=== PATIENT | male | born 1955 | race Caucasian/White ===

== ENCOUNTER → 2016-06-04 | Outpatient (CLI) | payer OTHER ==
--- NOTE | 2016-06-04 12:25 | CT ---
EXAMINATION TYPE: CT angio abdomen DATE OF EXAM: 06/04/2016 12:17 PM COMPARISON: NONE HISTORY: AAA follow up CT DLP: 997.4 mGycm Automated exposure control for dose reduction was used. TECHNIQUE: Performed without and with IV Contrast, patient injected with 100 mL of Omnipaque 350. Three-D reconstructed images are performed.. FINDINGS: There is an abdominal aortic aneurysm measuring 5.2 cm in greatest AP dimension. This begins in the i nfrarenal region and terminates at the bifurcation. Vascular calcification is within the aorta. Note is made of sigmoid diverticulosis. No acute diverticulitis is evident. Multiple hypodensities ar e scattered within the liver likely related to hepatic cysts. Spleen is unremarkable. Pancreas normal . Gallbladder is normal. Kidneys are unremarkable. Adrenal glands are normal. Urinary bladder is decompressed with limited evaluation Limited CT sections are obtained the lung bases. There is streak opacity at the right lung base may b e some atelectasis. Underlying nodularity measuring 1.0 cm may be present. Underlying mass should be considered. Follow-up CT chest is recommended. This was present for 12/10/2015. The internal flow lumen of the abdominal aortic aneurysm is smaller than the aortic diameter. No extr avasation of contrast is evident. 3-D reconstructed images performed separately on the [place] by the technologist are filmed and presented for interpretation. IMPRESSION: 1. ABDOMINAL AORTIC ANEURYSM MEASURING 5.2 CM IN GREATEST AP DIMENSION. THIS IS 0.4 CM LARGER THAN TH E COMPARISON OF MAY 2015.
== END | disposition home or self-care (01) ==
LOC: RADCTMAIN 11:23
PROVIDERS: ATTEND Internal Medicine Interventional Cardiology
DX: I71.4 Abdominal aortic aneurysm, without rupture (principal)
CPT/HCPCS: 74175; Q9967

== ENCOUNTER → 2016-12-07 | Outpatient (CLI) | payer OTHER ==
--- NOTE | 2016-12-07 10:44 | CT ---
EXAMINATION TYPE: CT angio neck DATE OF EXAM: 12/07/2016 HISTORY: Carotid stenosis COMPARISON: NONE CT DLP: 776 mGycm. Automated Exposure Control for Dose Reduction was Utilized. TECHNIQUE: CTA scan of the neck is performed with IV Contrast, patient injected with 65 mL of Omnipa que 350, axial images are obtained, coronal and sagittal reformatted images are reviewed. Three-D rec onstructed images are created on an independent workstation and reviewed. FINDINGS: Carotid: Left: Calcific and noncalcific atheromatous plaquing is present at the carotid bulb on the left resul ting in 60% stenosis at the carotid bulb 4 6 mm with focal near occlusive stenosis of approximately 9 0% seen on series 7 image 11 and series 10 image 41. Distal to this there is approximately 60% stenos is for 6 mm secondary to calcific atheromatous plaquing seen on series 5 image 40 and 39. The remaind er of the extracranial portions of the internal carotid artery are unremarkable. Nonhemodynamically s ignificant calcific atheromatous changes are seen of the left cavernous and supraclinoid portions of the internal carotid artery. Right: Calcific atheromatous plaquing is seen of the common carotid artery on the right, less than 50 % and nonhemodynamically significant. At the carotid bulb calcific and noncalcific atheromatous segovia es are also appreciated resulting in approximately 40% stenosis, also nonhemodynamically significant. Within the internal carotid artery just distal to the carotid bulb there is a focal area of stenosis that is approximately 70% for approximately 6-9 mm in length. The remainder of the extracranial port ions of the right internal carotid artery are unremarkable. Nonhemodynamically significant calcific a theromatous changes are seen of the right cavernous and supraclinoid portions of the internal carotid artery Other vascular structures: The right vertebral artery is dominant. Ostial stenosis at the origin of t he left vertebral artery is seen although difficult to actually measure degree of stenosis given the obliquity of its takeoff. This is estimated on series 7 image 30 to be less than 50%. Atherosclerosis is also seen of the aortic arch with nonhemodynamically significant ostial calcific atheromatous rodo nges of the great vessel origins. Approximately 50% stenosis is seen of the proximal subclavian arter y on the left due to calcific and noncalcific atheromatous plaquing. 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 Paranasal sinu ses are well aerated as are the mastoid air cells. Multilevel degenerative changes are appreciated of the cervical spine resulting in variable degrees of neural foraminal stenosis. Thyroid appears unrem arkable. No adenopathy is seen within the superior mediastinum. Partial visualization of median cantrell otomy wires and mediastinal clips from presumed prior coronary artery bypass are present. IMPRESSION: 1. Short segment focal near complete occlusion (approximately 90% degree of stenosis) of the left int ernal carotid artery just distal to the left carotid bulb with subsequent short segment stenosis of a pproximately 60% of the internal carotid artery for approximately 6 mm in length. 2. Focal stenosis of the right internal carotid artery just distal to the carotid bulb measuring 70% for approximately 6 to 9 mm in length. 3. Multifocal moderate calcific and noncalcific atheromatous changes of the common carotid arteries, extracranial portions of the internal carotid arteries, and cavernous/supraclinoid portions of the in ternal carotid arteries of less than 50%, nonhemodynamically significant stenosis. 4. Multilevel degenerative disc disease of the cervical spine resulting in variable degrees of neural foraminal narrowing.
== END | disposition home or self-care (01) ==
LOC: RADCTMAIN 09:19
PROVIDERS: ATTEND Surgery Vascular Surgery
DX: I65.23 Occlusion and stenosis of bilateral carotid arteries (principal)
CPT/HCPCS: 70498; Q9967

== ENCOUNTER 2017-02-11 18:21 | Emergency (ER) | payer OTHER ==
[2017-02-11 18:41] VITALS: TEMP 99.2
[2017-02-11] MEDS ORDERED: SODIUM CHLORIDE 0.9% 1,000 ML IV STA (19:18)
[2017-02-11 19:31] LABS: Anisocytosis Slight; Basophils # (A) 0.1 k/uL (0-0.2); Basophils % (A) 0 %; CH 30.2; CHCM 32.9; Eosinophils # (A) 0.1 k/uL (0-0.7); Eosinophils % (A) 1 %; HCT 44.3 % (39.0-53.0); HDW 2.23; HGB 14.3 gm/dL (13.0-17.5); Luc # (Auto) 0.23; Luc % (Auto) 2; Lymphocytes # (A) 1.8 k/uL (1.0-4.8); Lymphocytes % (A) 15 %; MCH 29.8 pg (25.0-35.0); MCHC 32.3 g/dL (31.0-37.0); MCV 92.2 fL (80.0-100.0); Mean Platelet Volume 7.4; Monocytes # (A) 1.1 k/uL (0-1.0); Monocytes % (A) 9 %; Neutrophils # (A) 8.5 k/uL (1.3-7.7); Neutrophils % (A) 72 %; RDW 16.9 % (11.5-15.5); WBC 11.8 k/uL (3.8-10.6); WBC (Perox) 11.88
[2017-02-11] MEDS ORDERED: GELATIN SPONGE,ABSORB (LARGE) 1 EACH SPONGE TOPICAL STA (19:34)
[2017-02-11 19:41] LABS: ALT 39 U/L (21-72); AST 29 U/L (17-59); Alkaline Phosphatase 82 U/L (38-126); Anion Gap 12 mmol/L; Blood Urea Nitrogen 18 mg/dL (9-20); Calcium 9.5 mg/dL (8.4-10.2); Carbon Dioxide 21 mmol/L (22-30); Chloride 103 mmol/L (98-107); Glucose 100 mg/dL (74-99); INR 1.1 (<1.2); Magnesium 1.7 mg/dL (1.6-2.3); Non-African American GFR(MDRD) 55 (>60 ml/min/1.73 sqM); Partial Thromboplastin Time 27.2 sec (22.0-30.0); Potassium 4.3 mmol/L (3.5-5.1); Prothrombin Time 10.9 sec (9.0-12.0); Sodium 136 mmol/L (137-145); Total Bilirubin 0.7 mg/dL (0.2-1.3); Total Protein 7.5 g/dL (6.3-8.2)
[2017-02-11] MEDS ORDERED: LIDOCAINE/EPINEPHR/TETRACAINE 5 ML BOTTLE TOPICAL ONE (19:43)
--- NOTE | 2017-02-11 19:46 | ED ---
GI Bleed HPI - General Chief complaint: GI Bleed Stated complaint: Blood in stool Time Seen by Provider: 02/11/17 19:04 Source: patient, RN notes reviewed, old records reviewed Mode of arrival: ambulatory Limitations: no limitations - History of Present Illness Initial comments: This is a 62-year-old male presents emergency department today chief complaint of bleeding from his rectum for approximately one day. He reports he was at work, and went to have a bowel movement and noticed severe bleeding and passed a clot. Patient reports he's had a history of hemorrhage in the step on it periodically. He is on Plavix after a AAA repair, in July, he also had a carotid endarterectomy done approximately one week ago by Dr. Dumont. Patient reports he has no chest pain or shortness of breath. Denies any palpitations. Patient reports that he is went through multiple dish towels within his underwear due to the bleeding from the hemorrhoid. Patient states that he does not feel dizzy or lightheaded. He started apply pressure and shower over the area but he continues to bleed. - Related Data Home Medications Medication Instructions Recorded Confirmed Aspirin 81 mg PO BID 03/26/14 02/11/17 Lisinopril 2.5 mg PO DAILY 03/26/14 02/11/17 Metoprolol Tartrate [Lopressor] 25 mg PO BID 03/26/14 02/11/17 Cholecalciferol [Vitamin D3] 5,000 unit PO DAILY 02/11/17 02/11/17 Clopidogrel Bisulfate [Plavix] 75 mg PO DAILY 02/11/17 02/11/17 Previous Rx's Medication Instructions Recorded Polyethylene Glycol 3350 [Miralax] 17 gm PO DAILY #255 gm 02/11/17 Allergies Allergy/AdvReac Type Severity Reaction Status Date / Time No Known Allergies Allergy Verified 02/11/17 19:02 Review of Systems ROS Statement: Those systems with pertinent positive or pertinent negative responses have been documented in the HPI. ROS Other: All systems not noted in ROS Statement are negative. Past Medical History Past Medical History: Hyperlipidemia, Hypertension Additional Past Medical History / Comment(s): 03/26/14 Pt presents to [facility] ER via EMS with c/o having snowblowed his driveway for 1/2 hour and then went into the house. He started feeling lightheaded and almost passed out. He had associated nausea and was pale and sob per . Symptoms lasted about 5 minutes. Pt also states he thinks he may have a L ear infection at this time. He has some discomfort in L ear.Other HX: Pt denies HTN - states he is on lopressor and zestril due to having had CABG only and was never HTN. History of Any Multi-Drug Resistant Organisms: None Reported Past Surgical History: Coronary Bypass/CABG, Hernia Repair, Orthopedic Surgery, Tonsillectomy Additional Past Surgical History / Comment(s): May 2012 5 vessel CABG, R and L inguinal hernia repairs, bilateral shoulder surgery- R side was operated on by mistake and L side had torn ligaments and cartlidge repair. AAA repair July 2017, carotid Past Anesthesia/Blood Transfusion Reactions: No Reported Reaction Additional Past Anesthesia/Blood Transfusion Reaction / Comment(s): Pt has never recieved blood to his knowledge Past Psychological History: No Psychological Hx Reported Smoking Status: Former smoker Past Alcohol Use History: None Reported Past Drug Use History: None Reported - Past Family History Father Family Medical History: Coronary Artery Disease (CAD), Myocardial Infarction (NE ) Mother Family Medical History: Diabetes Mellitus General Exam - General Exam Comments Initial Comments: This is a 62-year-old male. Alert and oriented 4. No distress. Limitations: no limitations General appearance: alert, in no apparent distress Head exam: Present: atraumatic, normocephalic, normal inspection Eye exam: Present: normal appearance, PERRL, EOMI. Absent: scleral icterus, conjunctival injection, periorbital swelling ENT exam: Present: normal exam, mucous membranes moist Neck exam: Present: normal inspection. Absent: tenderness, meningismus, lymphadenopathy Respiratory exam: Present: normal lung sounds bilaterally. Absent: respiratory distress, wheezes, rales, rhonchi, stridor Cardiovascular Exam: Present: regular rate, normal rhythm, normal heart sounds. Absent: systolic murmur, diastolic murmur, rubs, gallop, clicks GI/Abdominal exam: Present: soft, normal bowel sounds. Absent: distended, tenderness, guarding, rebound, rigid Rectal exam: Present: normal rectal tone, heme (+) stool, hemorrhoids (Patient has evidence of thrombosed bleeding hemorrhoid the rectum.). Absent: normal inspection Extremities exam: Present: normal inspection, full ROM, normal capillary refill. Absent: tenderness, pedal edema, joint swelling, calf tenderness Back exam: Present: normal inspection Neurological exam: Present: alert, oriented X3, CN II-XII intact Psychiatric exam: Present: normal affect, normal mood Skin exam: Present: warm, dry, intact, normal color. Absent: rash Course Vital Signs 02/11/17 02/11/17 18:35 21:00 Temperature 99.2 F Pulse Rate 116 H 97 Respiratory 16 20 Rate Blood Pressure 140/86 124/70 O2 Sat by Pulse 98 98 Oximetry Medical Decision Making - Medical Decision Making This is a 62-year-old male presents emergency department today chief complaint of bleeding from his rectum. He has history of hemorrhoids. He reports that he is went through multiple digitalis today afternoon he noticed that it started to bleed. Patient's labwork was reviewed, stable hemoglobin. Vital signs are all stable. He denies any lightheadedness, dizziness chest pain or shortness of breath. There is had a carotid entered ectomy by Dr. Dumont. He is on Plavix. I was able to identify the bleed over the hemorrhoid over the right buttocks. Patient's hemorrhoid was cleaned, applied a sterile dressing over the area and have the patient keep pressure. Patient was reexamined afterwards, and it seems as though the bleeding has stopped. I also did this with lidocaine and Gelfoam. Patient held this over the area for 15-20 minutes. is reexamined and no bleeding. I also did that without any pressure in that clinic the bleeding has stopped. Patient's case discussed with Dr. De Paz. With stable hemoglobin, I will discharge the patient home. He states that he was told he is supposed to discontinue his Plavix after the next few days. Patient was informed that he should call his assess surgeon in regards to this. Following up with primary care provider Aneesh kovacs in regards to the hemorrhoids. Surrounding MiraLAX for stool softening agent. - Lab Data Result diagrams: 02/11/17 19:11 02/11/17 19:11 Lab Results 02/11/17 02/11/17 02/11/17 Range/Units 19:11 19:11 19:11 WBC 11.8 H (3.8-10.6) k/uL RBC 4.80 (4.30-5.90) m/uL Hgb 14.3 (13.0-17.5) gm/dL Hct 44.3 (39.0-53.0) % MCV 92.2 (80.0-100.0) fL MCH 29.8 (25.0-35.0) pg MCHC 32.3 (31.0-37.0) g/dL RDW 16.9 H (11.5-15.5) % Plt Count 260 (150-450) k/uL Neutrophils % 72 % Lymphocytes % 15 % Monocytes % 9 % Eosinophils % 1 % Basophils % 0 % Neutrophils # 8.5 H (1.3-7.7) k/uL Lymphocytes # 1.8 (1.0-4.8) k/uL Monocytes # 1.1 H (0-1.0) k/uL Eosinophils # 0.1 (0-0.7) k/uL Basophils # 0.1 (0-0.2) k/uL Anisocytosis Slight PT (9.0-12.0) sec INR (<1.2) APTT (22.0-30.0) sec Sodium 136 L (137-145) mmol/L Potassium 4.3 (3.5-5.1) mmol/L Chloride 103 (98-107) mmol/L Carbon Dioxide 21 L (22-30) mmol/L Anion Gap 12 mmol/L BUN 18 (9-20) mg/dL Creatinine 1.32 H (0.66-1.25) mg/dL Est GFR (MDRD) Af Amer >60 (>60 ml/min/1.73 sqM) Est GFR (MDRD) Non-Af 55 (>60 ml/min/1.73 sqM) Glucose 100 H (74-99) mg/dL Calcium 9.5 (8.4-10.2) mg/dL Magnesium 1.7 (1.6-2.3) mg/dL Total Bilirubin 0.7 (0.2-1.3) mg/dL AST 29 (17-59) U/L ALT 39 (21-72) U/L Alkaline Phosphatase 82 (38-126) U/L Total Creatine Kinase 420 H (55-170) U/L CK-MB (CK-2) 3.7 H* (0.0-2.4) ng/mL CK-MB (CK-2) Rel Index 0.9 Troponin I <0.012 (0.000-0.034) ng/mL Total Protein 7.5 (6.3-8.2) g/dL Albumin 4.3 (3.5-5.0) g/dL Stool Occult Blood (Negative) Blood Type Blood Type Recheck Antibody Screen Spec Expiration Date 02/11/17 02/11/17 02/11/17 Range/Units 19:11 19:11 19:11 WBC (3.8-10.6) k/uL RBC (4.30-5.90) m/uL Hgb (13.0-17.5) gm/dL Hct (39.0-53.0) % MCV (80.0-100.0) fL MCH (25.0-35.0) pg MCHC (31.0-37.0) g/dL RDW (11.5-15.5) % Plt Count (150-450) k/uL Neutrophils % % Lymphocytes % % Monocytes % % Eosinophils % % Basophils % % Neutrophils # (1.3-7.7) k/uL Lymphocytes # (1.0-4.8) k/uL Monocytes # (0-1.0) k/uL Eosinophils # (0-0.7) k/uL Basophils # (0-0.2) k/uL Anisocytosis PT 10.9 (9.0-12.0) sec INR 1.1 (<1.2) APTT 27.2 (22.0-30.0) sec Sodium (137-145) mmol/L Potassium (3.5-5.1) mmol/L Chloride (98-107) mmol/L Carbon Dioxide (22-30) mmol/L Anion Gap mmol/L BUN (9-20) mg/dL Creatinine (0.66-1.25) mg/dL Est GFR (MDRD) Af Amer (>60 ml/min/1.73 sqM) Est GFR (MDRD) Non-Af (>60 ml/min/1.73 sqM) Glucose (74-99) mg/dL Calcium (8.4-10.2) mg/dL Magnesium (1.6-2.3) mg/dL Total Bilirubin (0.2-1.3) mg/dL AST (17-59) U/L ALT (21-72) U/L Alkaline Phosphatase (38-126) U/L Total Creatine Kinase (55-170) U/L CK-MB (CK-2) (0.0-2.4) ng/mL CK-MB (CK-2) Rel Index Troponin I (0.000-0.034) ng/mL Total Protein (6.3-8.2) g/dL Albumin (3.5-5.0) g/dL Stool Occult Blood Positive (Negative) Blood Type O Negative Blood Type Recheck O Neg Antibody Screen NEGATIVE Spec Expiration Date 02/14/2017231002/12/17 04:44 EKG performed at 1935 shows sinus tachycardia, possible left atrial enlargement. Inferior infarct age undetermined. Injured rate of 101 bpm. DC interval 154 ms. QRS duration 90 ms. QT QTc is 464 ms. Disposition Clinical Impression: Bleeding hemorrhoid, Anticoagulant effect Disposition: HOME SELF-CARE Condition: Good Instructions: Hemorrhoids (ED), Rectal Bleeding (ED) Additional Instructions: Patient advised to apply Gelfoam, and firm pressure with gauze pad if the bleeding reoccurs. Return to emergency department if any severe bleeding occurs including lightheadedness or dizziness. Return to the emergency department if any alarming signs or symptoms occur. Patient to follow-up with primary care provider as well as surgeon to the severity of the hemorrhoids. Patient should take stool softeners. Prescriptions: Polyethylene Glycol 3350 [Miralax] 17 gm PO DAILY #255 gm Referrals: Adarsh Carroll MD [Primary Care Provider] - 1-2 days Chata Gonzalez MD [STAFF PHYSICIAN] - 1-2 days Time of Disposition: 21:57
[2017-02-11 19:51] LABS: Creatine Kinase 420 U/L (55-170)
[2017-02-11 20:03] LABS: Troponin I <0.012 ng/mL (0.000-0.034)
[2017-02-11 20:05] LABS: Creatine Kinase MB 3.7 ng/mL (0.0-2.4)
[2017-02-11 21:08] VITALS: BP 124/70; PULSE 97; RESP 20
== END 2017-02-11 22:12 | disposition home or self-care (01) ==
LOC: EC 18:21
DX: K64.9 Unspecified hemorrhoids (principal); T45.515A Adverse effect of anticoagulants, initial encounter; I10 Essential (primary) hypertension; Z87.891 Personal history of nicotine dependence; Z98.890 Other specified postprocedural states; Z79.82 Long term (current) use of aspirin; Z79.02 Long term (current) use of antithrombotics/antiplatelets; Z79.899 Other long term (current) drug therapy
CPT/HCPCS: 36415; 80053; 82272; 82550; 82553; 83735; 84484; 85025; 85610; 85730; 86850; 86900; 86901; 93005; 96360; 96361; 99285

== ENCOUNTER 2017-04-06 08:04 | Day surgery (SDC) | payer OTHER ==
[2017-04-05 08:55] VITALS: BMI 28.0
[~2017-04-06 08:04] MED LIST: LACTATED RINGERS 1,000 ML IV SCH
[2017-04-06 08:55] VITALS: TEMP 98.2
[2017-04-06] MEDS ORDERED: LIDOCAINE 1% 20 ML VIAL (10MG/ML) FOR IV START INTRADERMA ONE (09:01)
[2017-04-06] MEDS ORDERED: PROPOFOL 10 MG/ML 20 ML VIAL IV ONE (09:14)
--- NOTE | 2017-04-06 09:44 | P.PCN ---
Date of Procedure: 04/06/17 Procedure(s) Performed: Procedure: Total colonoscopy. Preoperative diagnosis: Intermittent rectal bleeding and history of polyps. Postoperative diagnosis: 1. Grade 2 internal hemorrhoids without evidence of bleeding at the time of the exam. 2. Diverticulosis with no evidence of acute diverticulitis or strictures. 3. Diminutive rectal polyps consistent with hyperplastic polyps but no significant polyps or cancer. Preparation: HalfLytely prep. Sedation: Was provided by anesthesia. Brief clinical history: The patient is a 62-year-old male with history of polyps. His last exam was in 2012. The patient has been having intermittent rectal bleeding over the last couple years. This was more pronounced more recently when he was on Plavix. Procedure: With the patient on his left lateral decubitus position and after informed consent and adequate sedation, the perianal area was inspected and it did not show any fissures or fistulas. There were no masses felt on digital rectal examination. The Olympus CFQ 160L video colonoscope was then inserted in the rectum in the usual fashion and advanced to the cecum. There were multiple diverticular orifices seen scattered in the sigmoid and left side with occasional orifice around the hepatic flexure with no evidence of acute diverticulitis or strictures. There were several diminutive polyps in the rectum consistent with hyperplastic polyps but there was no evidence of significant polyps or tumors. The mucosa appeared healthy. I retroflexed the endoscope in the rectum before the endoscope was withdrawn. Low-grade internal hemorrhoids were noted with no evidence of bleeding. The patient tolerated the procedure well. Plan: The patient was reassured. Discussed dietary measures and local care for hemorrhoids. He will follow up with you as planned and I recommended repeat exam in 5 years.
[2017-04-06 09:48] VITALS: RESP 18
[2017-04-06] MEDS ORDERED: ALBUTEROL NEBULIZED 2.5 MG/3 ML INHALATION STA (09:55)
[2017-04-06 10:13] VITALS: BP 116/55
[2017-04-06 10:23] VITALS: PULSE 58
--- NOTE | 2017-04-06 10:23 | XR ---
EXAMINATION TYPE: XR chest 1V portable DATE OF EXAM: 04/06/2017 HISTORY: Shortness of breath. Possible aspiration COMPARISON: March 26, 2014 TECHNIQUE: Single view of the chest is submitted. FINDINGS: Demonstrated are scattered senescent parenchymal change. There is no evidence for focal infiltrate. The heart is stable. Hilar and mediastinal structures are within normal limits. Degenerative changes are seen of the dorsal spine. IMPRESSION: 1. Chronic changes without evidence for acute pulmonary disease.
== END 2017-04-06 10:50 | disposition home or self-care (01) ==
LOC: ORWHC2ENDO 08:04
DX: K62.1 Rectal polyp (principal); Z86.010 Personal history of colon polyps; K64.1 Second degree hemorrhoids; K57.30 Diverticulosis of large intestine without perforation or abscess without bleeding; Z87.891 Personal history of nicotine dependence; I25.10 Atherosclerotic heart disease of native coronary artery without angina pectoris; I10 Essential (primary) hypertension; E78.5 Hyperlipidemia, unspecified; Z79.82 Long term (current) use of aspirin; Z79.899 Other long term (current) drug therapy; Z95.1 Presence of aortocoronary bypass graft
CPT/HCPCS: 94640; 71045; 45378; J2704

== ENCOUNTER 2019-08-07 11:46 | Observation (INO) | payer MEDICARE, OTHER ==
[2019-08-07] MEDS ORDERED: ACETAMINOPHEN TAB 500 MG TAB PO STA (12:46)
[2019-08-07] MEDS ORDERED: cefTRIAXone IN SWFI 1,000 MG/10 ML SYRINGE IVP STA ×2 (12:48→15:03)
--- NOTE | 2019-08-07 12:50 | ED ---
General Adult HPI - General Chief complaint: ENT Stated complaint: lt ear pain Time Seen by Provider: 08/07/19 12:30 Source: patient, RN notes reviewed Mode of arrival: ambulatory Limitations: no limitations - History of Present Illness Initial comments: Patient is a pleasant 64-year-old male presenting to the emergency Department with complaints of left ear pain. Onset of symptoms was a couple of days ago, worsening. Patient did have fever and chills this morning. Patient took Tylenol around 6 AM. Discomfort is mild to moderate. No hearing loss. Patient does have some history of chronic ear problems and dry scaly skin there. Patient also has some discomfort of the area around the ear. - Related Data Home Medications Medication Instructions Recorded Confirmed Aspirin 81 mg PO DAILY 03/26/14 04/06/17 Lisinopril 2.5 mg PO DAILY 03/26/14 04/06/17 Metoprolol Tartrate [Lopressor] 50 mg PO AC-BRKFST 03/26/14 04/06/17 Cholecalciferol [Vitamin D3] 5,000 unit PO DAILY 02/11/17 04/06/17 Atorvastatin [Lipitor] 40 mg PO HS 04/05/17 04/06/17 Metoprolol Tartrate 25 mg PO HS 04/05/17 04/06/17 Previous Rx's Medication Instructions Recorded Polyethylene Glycol 3350 [Miralax] 17 gm PO DAILY #255 gm 02/11/17 Allergies Allergy/AdvReac Type Severity Reaction Status Date / Time No Known Allergies Allergy Verified 08/07/19 12:07 Review of Systems ROS Statement: Those systems with pertinent positive or pertinent negative responses have been documented in the HPI. ROS Other: All systems not noted in ROS Statement are negative. Constitutional: Reports: fever, chills Eyes: Denies: eye pain ENT: Reports: as per HPI, ear pain Respiratory: Denies: cough Cardiovascular: Denies: chest pain Endocrine: Denies: fatigue Gastrointestinal: Denies: abdominal pain Genitourinary: Denies: dysuria Musculoskeletal: Denies: back pain Skin: Denies: lesions Neurological: Denies: weakness Past Medical History Past Medical History: GI Bleed, Hyperlipidemia, Hypertension Additional Past Medical History / Comment(s): hx polyps History of Any Multi-Drug Resistant Organisms: None Reported Past Surgical History: Coronary Bypass/CABG, Hernia Repair, Orthopedic Surgery, Tonsillectomy Additional Past Surgical History / Comment(s): May 2012 5 vessel CABG, R and L inguinal hernia repairs, bilateral shoulder surgery, AAA repair 2016, rt carotid surgery Past Anesthesia/Blood Transfusion Reactions: No Reported Reaction Additional Past Anesthesia/Blood Transfusion Reaction / Comment(s): Pt has never recieved blood to his knowledge Past Psychological History: No Psychological Hx Reported Smoking Status: Former smoker - Past Family History Father Family Medical History: Coronary Artery Disease (CAD), Myocardial Infarction ([place]) Mother Family Medical History: Diabetes Mellitus General Exam Limitations: no limitations General appearance: alert, in no apparent distress Head exam: Present: normocephalic Eye exam: Present: normal appearance ENT exam: Present: other (Left auricle with mild to moderate swelling. There is trace erythema. There is some tenderness to the mastoid and possibly some swelling. External canal with erythema however no swelling. Tympanic membrane with erythema) Neck exam: Present: normal inspection. Absent: tenderness Respiratory exam: Present: normal lung sounds bilaterally Cardiovascular Exam: Present: regular rate, normal rhythm GI/Abdominal exam: Present: soft. Absent: tenderness Extremities exam: Present: normal inspection Neurological exam: Present: alert Psychiatric exam: Present: normal affect, normal mood Skin exam: Present: erythema (Trace erythema left ear) Course Vital Signs 08/07/19 12:02 Temperature 99.0 F Pulse Rate 60 Respiratory 18 Rate Blood Pressure 93/56 O2 Sat by Pulse 98 Oximetry Medical Decision Making - Medical Decision Making Patient reevaluated and updated. Case discussed with Dr. Gonzalez, covering for Dr. Guerrero, who admits for Dr. Palacio who will admit and agrees with ENT consult. - Lab Data Result diagrams: 08/07/19 13:20 08/07/19 13:20 Lab Results 08/07/19 08/07/19 08/07/19 Range/Units 13:20 13:20 13:20 WBC 12.6 H (3.8-10.6) k/uL RBC 5.01 (4.30-5.90) m/uL Hgb 16.6 (13.0-17.5) gm/dL Hct 49.0 (39.0-53.0) % MCV 97.7 (80.0-100.0) fL MCH 33.0 (25.0-35.0) pg MCHC 33.8 (31.0-37.0) g/dL RDW 13.2 (11.5-15.5) % Plt Count 165 (150-450) k/uL Neutrophils % 84 % Lymphocytes % 6 % Monocytes % 7 % Eosinophils % 1 % Basophils % 0 % Neutrophils # 10.7 H (1.3-7.7) k/uL Lymphocytes # 0.7 L (1.0-4.8) k/uL Monocytes # 0.9 (0-1.0) k/uL Eosinophils # 0.1 (0-0.7) k/uL Basophils # 0.0 (0-0.2) k/uL PT 11.4 (9.0-12.0) sec INR 1.1 (<1.2) APTT 27.6 (22.0-30.0) sec Sodium 137 (137-145) mmol/L Potassium 4.6 (3.5-5.1) mmol/L Chloride 102 (98-107) mmol/L Carbon Dioxide 26 (22-30) mmol/L Anion Gap 9 mmol/L BUN 16 (9-20) mg/dL Creatinine 1.32 H (0.66-1.25) mg/dL Est GFR (CKD-EPI)AfAm 65 (>60 ml/min/1.73 sqM) Est GFR (CKD-EPI)NonAf 57 (>60 ml/min/1.73 sqM) Glucose 89 (74-99) mg/dL Plasma Lactic Acid Malik (0.7-2.0) mmol/L Calcium 8.6 (8.4-10.2) mg/dL Total Bilirubin 0.8 (0.2-1.3) mg/dL AST 23 (17-59) U/L ALT 22 (4-49) U/L Alkaline Phosphatase 66 (38-126) U/L Total Protein 7.1 (6.3-8.2) g/dL Albumin 3.7 (3.5-5.0) g/dL 08/07/19 Range/Units 13:20 WBC (3.8-10.6) k/uL RBC (4.30-5.90) m/uL Hgb (13.0-17.5) gm/dL Hct (39.0-53.0) % MCV (80.0-100.0) fL MCH (25.0-35.0) pg MCHC (31.0-37.0) g/dL RDW (11.5-15.5) % Plt Count (150-450) k/uL Neutrophils % % Lymphocytes % % Monocytes % % Eosinophils % % Basophils % % Neutrophils # (1.3-7.7) k/uL Lymphocytes # (1.0-4.8) k/uL Monocytes # (0-1.0) k/uL Eosinophils # (0-0.7) k/uL Basophils # (0-0.2) k/uL PT (9.0-12.0) sec INR (<1.2) APTT (22.0-30.0) sec Sodium (137-145) mmol/L Potassium (3.5-5.1) mmol/L Chloride (98-107) mmol/L Carbon Dioxide (22-30) mmol/L Anion Gap mmol/L BUN (9-20) mg/dL Creatinine (0.66-1.25) mg/dL Est GFR (CKD-EPI)AfAm (>60 ml/min/1.73 sqM) Est GFR (CKD-EPI)NonAf (>60 ml/min/1.73 sqM) Glucose (74-99) mg/dL Plasma Lactic Acid Malik 1.1 (0.7-2.0) mmol/L Calcium (8.4-10.2) mg/dL Total Bilirubin (0.2-1.3) mg/dL AST (17-59) U/L ALT (4-49) U/L Alkaline Phosphatase (38-126) U/L Total Protein (6.3-8.2) g/dL Albumin (3.5-5.0) g/dL - Radiology Data Radiology results: report reviewed (Computed tomography scan concerning for recurrent mastoiditis) Disposition Clinical Impression: Mastoiditis Disposition: ADMITTED IP TO THIS HOSP Is patient prescribed a controlled substance at d/c from ED?: No Referrals: Adarsh Carroll MD [Primary Care Provider] - 1-2 days Decision Time: 14:35
[2019-08-07] MEDS ORDERED: SODIUM CHLORIDE 0.9% 1,000 ML IV SCH (13:00)
[2019-08-07 13:48] LABS: Basophils % (A) 0 %; Eosinophils # (A) 0.1 k/uL (0-0.7); Eosinophils % (A) 1 %; HGB 16.6 gm/dL (13.0-17.5); Lymphocytes # (A) 0.7 k/uL (1.0-4.8); Lymphocytes % (A) 6 %; MCHC 33.8 g/dL (31.0-37.0); MCV 97.7 fL (80.0-100.0); Monocytes # (A) 0.9 k/uL (0-1.0); Monocytes % (A) 7 %; Neutrophils # (A) 10.7 k/uL (1.3-7.7); Neutrophils % (A) 84 %; Platelet Count 165 k/uL (150-450); RBC 5.01 m/uL (4.30-5.90); RDW 13.2 % (11.5-15.5); WBC 12.6 k/uL (3.8-10.6)
[2019-08-07 13:58] LABS: INR 1.1 (<1.2); Partial Thromboplastin Time 27.6 sec (22.0-30.0); Prothrombin Time 11.4 sec (9.0-12.0)
[2019-08-07 14:04] LABS: Albumin 3.7 g/dL (3.5-5.0); Calcium 8.6 mg/dL (8.4-10.2); Potassium 4.6 mmol/L (3.5-5.1); Total Bilirubin 0.8 mg/dL (0.2-1.3); Total Protein 7.1 g/dL (6.3-8.2)
--- NOTE | 2019-08-07 14:06 | CT ---
EXAMINATION TYPE: CT mastoid wo con DATE OF EXAM: 08/07/2019 COMPARISON: CT neck December 07, 2016 HISTORY: Left ear pain CT DLP: 274.4 mGycm. Automated Exposure Control for Dose Reduction was Utilized. TECHNIQUE: CT scan of internal auditory canal is performed without contrast, thin cut axial images ar e obtained, coronal reformatted images are also reviewed. FINDINGS: The external auditory canals are patent bilaterally. Mastoid air cells show persistent pat tarah opacification of inferior left mastoid air cells similar to prior study. The middle ear ossicles are symmetric and unremarkable. There is no evidence of suspicious surrounding soft tissue density to suggest cholesteatoma. The scutum is preserved bilaterally. The cochlea and the semicircular can als are symmetric and unremarkable. Vestibular aqueduct and internal carotid canal appear unremarkab le. Some vascular calcification distal internal carotid arteries is redemonstrated bilaterally Temporomandibular joints are maintained bilaterally. Visualized paranasal sinuses are grossly clear. Globes are intact bilaterally. Visualized portion brain parenchyma is felt within normal limits. IMPRESSION: Possible recurrent acute left-sided mastoiditis. Correlate clinically.
[2019-08-07 14:46] VITALS: BP 94/61; PULSE 53; RESP 16; TEMP 99.4
[2019-08-07] MEDS ORDERED: MORPHINE SULFATE 4 MG/ML SYRINGE IV PRN ×2 (15:30→16:57)
[2019-08-07] MEDS ORDERED: NALOXONE 0.4 MG/ML 1 ML VIAL IV PRN (15:30)
[2019-08-07] MEDS ORDERED: ACETAMINOPHEN TAB 325 MG TAB PO PRN (15:30)
[2019-08-07] MEDS ORDERED: HYDROcodone/APAP 5-325MG 1 EACH TAB PO PRN (16:56)
[2019-08-07] MEDS ORDERED: VANCOMYCIN 1,250 MG in SODIUM CHLORIDE 0.9% 250 ML IVPB SCH (17:30)
--- NOTE | 2019-08-07 18:07 | P.HPIM ---
History of Present Illness H&P Date: 08/07/19 Chief Complaint: left ear pain This H&P will also serve as the discharge summary. 64-year-old male with PMH of hypertension, dyslipidemia, CAD post bypass, AAA repair, carotid surgery presents to the ED for your pain. Patient reports your pain and swelling that has been ongoing for the past 2 days. He denies any ear discharge.patient noted ear pain and redness that started 2 days ago that has been progressively getting worse. He noted some fever and chills this morning which prompted him to come to the ED. Patient reports a previous history of left sided ear infections. patient states he typically puts triple antibiotic and Vaseline in his ear canal to prevent flaking and peeling of the skin around his ear. Patient states he has never seen an ENT for this issue before. he denies any headache, lower extremity edema, nausea or vomiting, cough, chest pain, shortness of breath, palpitations, changes in urination or bowel habits. He denies any changes in appetite or weight. He denies any dizziness, numbness/weakness/tingling of the extremities. In the ED, his vital signs are stable. CBC showed mild leukocytosis of 12.6. Coagulation panel was within normal limits. CMP showed creatinine of 1.32. CT of the internal auditory canal was performed which showed patchy opacification of the mastoid air cells similar to previous study. Patient is admitted for possible mastoiditis with ENT consultation. Review of Systems All systems: negative Past Medical History Past Medical History: GI Bleed, Hyperlipidemia, Hypertension Additional Past Medical History / Comment(s): hx polyps History of Any Multi-Drug Resistant Organisms: None Reported Past Surgical History: Coronary Bypass/CABG, Hernia Repair, Orthopedic Surgery, Tonsillectomy Additional Past Surgical History / Comment(s): May 2012 5 vessel CABG, R and L inguinal hernia repairs, bilateral shoulder surgery, AAA repair 2016, rt carotid surgery Past Anesthesia/Blood Transfusion Reactions: No Reported Reaction Additional Past Anesthesia/Blood Transfusion Reaction / Comment(s): Pt has never recieved blood to his knowledge Past Psychological History: No Psychological Hx Reported Additional Psychological History / Comment(s): Pt lives with his in their home. He is independent. He drives a car. Smoking Status: Former smoker Past Alcohol Use History: None Reported Additional Past Alcohol Use History / Comment(s): smoked 40 years 1ppd quit 2012 Past Drug Use History: None Reported - Past Family History Father Family Medical History: Coronary Artery Disease (CAD), Myocardial Infarction ([place]) Mother Family Medical History: Diabetes Mellitus Medications and Allergies Home Medications Medication Instructions Recorded Confirmed Type Aspirin 81 mg PO DAILY 03/26/14 08/07/19 History Lisinopril 2.5 mg PO DAILY 03/26/14 08/07/19 History Metoprolol Tartrate [Lopressor] 50 mg PO AC-BRKFST 03/26/14 08/07/19 History Cholecalciferol [Vitamin D3] 5,000 unit PO DAILY 02/11/17 08/07/19 History Atorvastatin [Lipitor] 40 mg PO HS 04/05/17 08/07/19 History Metoprolol Tartrate 25 mg PO HS 04/05/17 08/07/19 History Allergies Allergy/AdvReac Type Severity Reaction Status Date / Time No Known Allergies Allergy Verified 08/07/19 15:01 Physical Exam Vitals: Vital Signs Temp Pulse Resp BP Pulse Ox 08/07/19 14:40 99.4 F 53 L 16 94/61 96 08/07/19 12:02 99.0 F 60 18 93/56 98 Intake and Output 08/07/19 08/07/19 08/07/19 06:59 14:59 22:59 Other: Weight 83.007 kg 83.007 kg General: [non toxic], [no distress], [appears at stated age] Derm: [warm], [dry] Head: [atraumatic], [normocephalic], [symmetric] Eyes: [EOMI], [no lid lag], [anicteric sclera], [left ear appears erythematous with xerosis of the surrounding skin. There is no discharge and no tenderness with manipulation of the earlobe. There is minimal tenderness behind the ear. There is some lymphadenopathy on the left side.] Mouth: [no lip lesion], [mucus membranes moist] Cardiovascular: [S1S2 reg], [no murmur], [positive DP pulse bilateral], Lungs: [CTA bilateral], [no rhonchi, no rales] , [no accessory muscle use] Abdominal: [soft], [ nontender to palpation], [no guarding], [no appreciable organomegaly] Ext: [no gross muscle atrophy], [no edema], [no contractures] Neuro: [no focal neurologic deficits] Psych: [alert and oriented 3] Results CBC & Chem 7: 08/07/19 13:20 08/07/19 13:20 Labs: Abnormal Lab Results - Last 24 Hours (Table) 08/07/19 08/07/19 Range/Units 13:20 13:20 WBC 12.6 H (3.8-10.6) k/uL Neutrophils # 10.7 H (1.3-7.7) k/uL Lymphocytes # 0.7 L (1.0-4.8) k/uL Creatinine 1.32 H (0.66-1.25) mg/dL Thrombosis Risk Factor Assmnt - Choose All That Apply Any of the Below Risk Factors Present?: Yes Each Factor Represents 1 point: Obesity (BMI >25) Thrombosis Risk Factor Assessment Total Risk Factor Score: 1 Thrombosis Risk Factor Assessment Level: Low Risk Assessment and Plan Assessment: Otitis externa versus mastoiditis Leukocytosis Elevated creatinine CAD post CABG Hypertension AAA Systolic CHF CT of the internal auditory canal was concerning for mastoiditis. Case was extensively discussed with DANIELLE Ruiz that was taking care of the patient. DANIELLE Ruiz was able to communicate with Dr. Montero ENT on-call the symptoms of the patient along with imaging findings. Dr. Montero relayed to Sara that he would see the patient in clinic this week and recommended Ofloxacin ear drops 10 drops three times a day. His leukocytosis is likely related to this infection. He has an elevated creatinine of 1.32 which is similar to the creatinine in January 2017. He will be advised to continue aspirin, Lipitor and beta rahat for his history of CAD and AAA. He will be advised to continue lisinopril for his history of systolic CHF. He follows Dr. Carreon cardiology and Dr. Dumont vascular surgery in the outpatient setting. Patient is advised to make an appointment to see Dr. Montero within 2-3 days of discharge. We will discharge the patient home on ofloxacin drops. Patient would like to go home and verbalized understanding of the plan.
[2019-08-07] MEDS ORDERED: ATORVASTATIN 40 MG TAB PO SCH (21:00)
[2019-08-07] MEDS ORDERED: METOPROLOL TARTRATE 25 MG TAB PO SCH (21:00)
[2019-08-08] MEDS ORDERED: HEPARIN SODIUM,PORCINE 5,000 UNIT/ML 1 ML VIAL SQ SCH
--- NOTE | 2019-08-08 06:54 | P.CONS ---
History of Present Illness - Reason for Consult Consult date: 08/07/19 mastoiditis Requesting physician: Mary Beth Gordillo - Chief Complaint left ear pain and swelling x few days - History of Present Illness Patient is 64-year-old male presenting to the ER at [facility] with chief complaints of left ear pain patient symptom has been going on for few days before he presented to the hospital patient had describing the pain to be dull aching at times sharp with intensity 6-7 out of 10 and no radiation patient did have diffuse swelling and redness of his left ear and also is complaining of pain anterior as well as posterior to his left ear patient denies having any drainage from his left ear or any decrease in hearing the patient symptom started getting worse and the patient did have a fever and chills this morning patient took a dose of Tylenol around 6 AM and because of worsening symptoms presented to the ER with the patient was evaluated by the ER physician on arrival to the ER the patient did have low-grade fever of 99 F patient did have white count of 12.6 creatinine 1.32 patient had did have a CT of the head and mastoid area with concern for recurrent acute left-sided mastoiditis patient was started on vancomycin and Rocephin patient has been admitted to the hospital infectious disease was consulted for further management of antibiotic therapy. Review of Systems Positive point has been mentioned in HPI rest of the systems are negative Past Medical History Past Medical History: GI Bleed, Hyperlipidemia, Hypertension Additional Past Medical History / Comment(s): hx polyps History of Any Multi-Drug Resistant Organisms: None Reported Past Surgical History: Coronary Bypass/CABG, Hernia Repair, Orthopedic Surgery, Tonsillectomy Additional Past Surgical History / Comment(s): May 2012 5 vessel CABG, R and L inguinal hernia repairs, bilateral shoulder surgery, AAA repair 2015, rt carotid surgery Past Anesthesia/Blood Transfusion Reactions: No Reported Reaction Additional Past Anesthesia/Blood Transfusion Reaction / Comm: Pt has never recieved blood to his knowledge Past Psychological History: No Psychological Hx Reported Additional Psychological History / Comment(s): Pt lives with his in their home. He is independent. He drives a car. Smoking Status: Former smoker Past Alcohol Use History: None Reported Additional Past Alcohol Use History / Comment(s): smoked 40 years 1ppd quit 2012 Past Drug Use History: None Reported - Past Family History Father Family Medical History: Coronary Artery Disease (CAD), Myocardial Infarction ([place]) Mother Family Medical History: Diabetes Mellitus Medications and Allergies Home Medications Medication Instructions Recorded Confirmed Type Aspirin 81 mg PO DAILY 03/26/14 08/07/19 History Lisinopril 2.5 mg PO DAILY 03/26/14 08/07/19 History Metoprolol Tartrate [Lopressor] 50 mg PO AC-BRKFST 03/26/14 08/07/19 History Cholecalciferol [Vitamin D3 (25 5,000 unit PO DAILY 02/11/17 08/07/19 History Mcg = 1000 Iu)] Atorvastatin [Lipitor] 40 mg PO HS 04/05/17 08/07/19 History Metoprolol Tartrate 25 mg PO HS 04/05/17 08/07/19 History Ofloxacin 0.3% Otic Soln [Floxin 10 drops LEFT EAR BID #10 ml 08/07/19 Rx 0.3% Otic Soln] Allergies Allergy/AdvReac Type Severity Reaction Status Date / Time No Known Allergies Allergy Verified 08/07/19 15:01 Physical Exam Vitals: Vital Signs Temp Pulse Resp BP Pulse Ox 08/07/19 16:00 16 08/07/19 14:40 99.4 F 53 L 16 94/61 96 08/07/19 12:02 99.0 F 60 18 93/56 98 Intake and Output 08/07/19 08/07/19 08/07/19 06:59 14:59 22:59 Other: Weight 83.007 kg 83.007 kg GENERAL DESCRIPTION: Elderly male lying in bed, no distress. No tachypnea or accessory muscle of respiration use. HEENT: Shows Pallor , no scleral icterus. Oral mucous membrane is dry. Left external ear is swollen and red and warm to touch with mild point tenderness in the preauricular area NECK: Trachea central, no thyromegaly. LUNGS: Unlabored breathing. Clear to auscultation anteriorly. No wheeze or crackle. HEART: S1, S2, regular rate and rhythm. ABDOMEN: Soft, no tenderness , guarding or rigidity EXTREMITIES: No edema of feet. SKIN: No rash, no masses palpable. NEUROLOGICAL: The patient is awake, alert, oriented x3, mood and affect normal. Results CBC & Chem 7: 08/07/19 13:20 08/07/19 13:20 Labs: Abnormal Lab Results - Last 24 Hours (Table) 08/07/19 08/07/19 Range/Units 13:20 13:20 WBC 12.6 H (3.8-10.6) k/uL Neutrophils # 10.7 H (1.3-7.7) k/uL Lymphocytes # 0.7 L (1.0-4.8) k/uL Creatinine 1.32 H (0.66-1.25) mg/dL Assessment and Plan Assessment: -patient presented to the hospital with left ear pain swelling and redness in this patient also have a fever and did have elevated white count with a CT suspicious for left-sided mastoiditis acute the patient seem to have more of a symptom of left otitis externa and will likely need to cover for the gram- positive skin jay with likely pathogen plus minus gram-negative (1) Left otitis externa Status: Acute Code(s): H60.92 - UNSPECIFIED OTITIS EXTERNA, LEFT EAR SNOMED Code(s): 3831143 (2) Acute mastoiditis of left side Status: Acute Code(s): H70.002 - ACUTE MASTOIDITIS WITHOUT COMPLICATIONS, LEFT EAR SNOMED Code(s): 4238108720653336 Plan: 1-vancomycin pharmacy to dose her with a target trough of 15 while watching her kidney function and Vanco trough closely. And Rocephin 2 g daily will provide adequate antibiotics coverage. We will follow on clinical condition and cultures to further adjust medication if needed Thank you for this consultation we will follow the patient along with you Time with Patient: Greater than 30
[2019-08-08] MEDS ORDERED: METOPROLOL TARTRATE 50 MG TAB PO SCH (07:30)
[2019-08-08] MEDS ORDERED: ASPIRIN 81 MG PO SCH (09:00)
[2019-08-08] MEDS ORDERED: LISINOPRIL 2.5 MG TAB PO SCH (09:00)
== END 2019-08-07 19:00 | disposition home or self-care (01) ==
LOC: EC 11:46 → 1SOBS 15:30
PROVIDERS: ADMIT Internal Medicine; ATTEND Internal Medicine
DX: H70.002 Acute mastoiditis without complications, left ear (principal); H60.92 Unspecified otitis externa, left ear; D72.829 Elevated white blood cell count, unspecified; R50.9 Fever, unspecified; E78.5 Hyperlipidemia, unspecified; I25.10 Atherosclerotic heart disease of native coronary artery without angina pectoris; I11.0 Hypertensive heart disease with heart failure; I50.22 Chronic systolic (congestive) heart failure; I71.4 Abdominal aortic aneurysm, without rupture; Z79.82 Long term (current) use of aspirin; Z79.899 Other long term (current) drug therapy; Z20.828 Contact with and (suspected) exposure to other viral communicable diseases; Z87.19 Personal history of other diseases of the digestive system; Z95.1 Presence of aortocoronary bypass graft; Z87.891 Personal history of nicotine dependence; Z86.79 Personal history of other diseases of the circulatory system; E66.9 Obesity, unspecified; Z68.27 Body mass index [BMI] 27.0-27.9, adult; Z82.49 Family history of ischemic heart disease and other diseases of the circulatory system; Z83.3 Family history of diabetes mellitus
CPT/HCPCS: 96376; 96361; 96374; 99284; 36415; 80053; 83605; 85025; 85610; 85730; 87040; 70486; G0378; U0003; J0696

== ENCOUNTER 2019-09-05 19:52 | Inpatient (IN) | payer OTHER, MEDICARE ==
[2019-09-05] MEDS ORDERED: SODIUM CHLORIDE 0.9% 500 ML 500 ML IV ONE ×2 (20:25→23:05)
[2019-09-05 20:40] LABS: Basophils % (A) 0 %; Eosinophils % (A) 0 %; HCT 41.7 % (39.0-53.0); Lymphocytes # (A) 0.6 k/uL (1.0-4.8); Lymphocytes % (A) 5 %; MCH 32.9 pg (25.0-35.0); MCHC 33.6 g/dL (31.0-37.0); MCV 97.8 fL (80.0-100.0); Mean Platelet Volume 7.9; Monocytes # (A) 0.6 k/uL (0-1.0); Monocytes % (A) 5 %; Neutrophils % (A) 89 %; Platelet Count 147 k/uL (150-450); RBC 4.26 m/uL (4.30-5.90); RDW 13.9 % (11.5-15.5); WBC 12.4 k/uL (3.8-10.6)
[2019-09-05 20:48] LABS: INR 1.2 (<1.2); Partial Thromboplastin Time 27.4 sec (22.0-30.0); Prothrombin Time 11.8 sec (9.0-12.0)
[2019-09-05 20:50] LABS: Albumin 3.4 g/dL (3.5-5.0); Calcium 8.6 mg/dL (8.4-10.2); Potassium 4.2 mmol/L (3.5-5.1); Total Bilirubin 0.6 mg/dL (0.2-1.3); Total Protein 6.1 g/dL (6.3-8.2)
[2019-09-05] MEDS ORDERED: ACETAMINOPHEN TAB 325 MG TAB PO STA (20:55)
[2019-09-05 21:17] LABS: Appearance,Urine Clear (Clear); Bilirubin,Urine Negative (Negative); Blood,Urine Moderate (Negative); Color,Urine Yellow; Glucose,Urine (UA) Negative (Negative); Hyaline Casts,Urine 3 /lpf (0-2); Ketones,Urine Negative (Negative); Leukocyte Esterase,Urine Negative (Negative); Mucus,Urine Rare /hpf; Nitrite,Urine Negative (Negative); Protein,Urine Trace (Negative); RBC,Urine 12 /hpf (0-5); Specific Gravity,Urine 1.018 (1.001-1.035); Squamous Epithelial Cell,Urine <1 /hpf (0-4); Urobilinogen,Urine <2.0 mg/dL (<2.0); WBC,Urine 1 /hpf (0-5)
--- NOTE | 2019-09-05 22:22 | CT ---
EXAMINATION TYPE: CT angio abd aorta w/Runoff DATE OF EXAM: 09/05/2019 COMPARISON: 06/04/2016 HISTORY: Left groin pain and lower leg pain. History of AAA. CT DLP: 3159.6 mGycm Automated exposure control for dose reduction was used. CONTRAST: Performed without and with IV Contrast, patient injected with 100ml mL of Isovue 370. Images were obtained from the level of the diaphragm to the bottom of the feet without and with IV co ntrast. There are 3-D post processed images. There is some patchy infiltrate and atelectasis at the posterior lung bases. There is aorto iliac end ograft. There is patency of the graft. There is arterial flow in the celiac artery and superior mesen teric artery. There is plaque formation at the origins of the superior mesenteric artery. There is bi lateral arterial flow in the renal arteries. There is significant plaque formation at the origins of the renal arteries. There is 3.3 cm aneurysm of the lower abdominal aorta. There is arterial flow in both iliac arteries. There is significant plaque formation in the internal iliac arteries. There is s ignificant plaque in the right external iliac artery. There is arterial flow in the femoral arteries and the profunda femoris arteries bilaterally. There is moderate plaque at the distal femoral arterie s bilaterally. There is arterial flow in the popliteal arteries. Estimated narrowing of the distal le ft femoral artery is more than 85%. This is multifocal disease. Lumen narrowing of the right femoral artery appears less severe. There is significant calcified plaque in the popliteal arteries. There is patency of the tibial arteries. There is arterial flow in the anterior and posterior tibial artery. There is demonstrated arterial flow in the anterior and posterior tibial artery at the ankle. There i s bilateral arterial flow in the peroneal arteries. Multilevel stenosis in the femoral and iliac arteries is up to 50% diameter. There is no evidence of a pelvic mass. There is no inguinal hernia. Bladder distends smoothly. There is normal contrast opacification of the kidneys. There is no hydronephrosis. Ureters are not dilated. There is 3 cm cyst in the anterior right lobe of the liver. There are small cysts in the inferior ri ght lobe of the liver. Spleen is intact. Stomach is intact. There is no evidence of pancreatic mass. There is no evidence of a renal calculus. There is no evidence of ascites or free air. I see no bony destructive process. Bony pelvis appears intact. There are numerous sigmoid diverticula. I see no sig n of diverticulitis. IMPRESSION: Aorto iliac endograft appears widely patent. There is a mild aneurysm of the abdominal aorta that jacoby sures 3.3 cm and significantly smaller than old exam of 06/04/2016. Multilevel plaque formation in the iliac and femoral arteries with up to 50% stenosis. There is more severe plaque formation in the dis pam left femoral artery near the abductor hiatus where plaque formation is probably narrowing the lum en more than 85%. The legs were not evaluated on the old angiogram.
--- NOTE | 2019-09-05 22:23 | US ---
EXAMINATION TYPE: US venous doppler duplex LE LT DATE OF EXAM: 09/05/2019 10:08 PM COMPARISON: NONE CLINICAL HISTORY: blood clot. Pain and swelling left groin area/left leg x 2 days. No hx of DVT. Lisa ent takes baby aspirin. SIDE PERFORMED: Left TECHNIQUE: The lower extremity deep venous system is examined utilizing real time linear array sonog mavis with graded compression, doppler sonography and color-flow sonography. VESSELS IMAGED: External Iliac Vein (EIV) Common Femoral Vein Deep Femoral Vein Greater Saphenous Vein * Femoral Vein Popliteal Vein Small Saphenous Vein * Proximal Calf Veins (* superficial vessels) Left Leg: No evidence of DVT in veins imaged at this time from prox calf veins to EIV. Hypoechoic areas with hyperechoic centers seen within left groin at patient's area of pain. Largest m easures: 2.5 x 2.2 x 1.0 cm. Hypoechoic area seen left medial popliteal fossa measurin.7 x 2.6 x 1.1 cm. IMPRESSION: No evidence of deep vein thrombosis in the left leg. There is popliteal cyst. There is p rominent left inguinal lymph node.
[2019-09-05] MEDS ORDERED: cefTRIAXone IN SWFI 1,000 MG/10 ML SYRINGE IVP STA (22:25)
[2019-09-05] MEDS ORDERED: KETOROLAC 30 MG/ML 1 ML VIAL IVP STA (22:26)
[2019-09-05] MEDS: SODIUM CHLORIDE 0.9% 1,000 ML IV SCH (22:37)
[2019-09-05] MEDS ORDERED: CLINDAMYCIN 600 MG in DEXTROSE 5% IN WATER 50 ML IVPB STA ×2 (22:50)
--- NOTE | 2019-09-05 22:59 | ED ---
Extremity Problem HPI - General Chief complaint: Extremity Problem,Nontraumatic Stated complaint: Possible Blood Clot L Leg Time Seen by Provider: 09/05/19 20:09 Source: patient, family Mode of arrival: wheelchair - History of Present Illness Initial comments: 64-year-old male of HTN, HLD, AAA presenting today for chief complaint of left leg pain and redness. Patient was concerned that his left leg redness and swelling he took his daughter who is a nurse who thought he might have a blood clot. Patient denies any history of previous DVT or pulmonary embolism he denies anticoagulation use. He denies any recent injury or trauma but states he is hospice for a few days but was not immobilized secondary to a possible mastoiditis. Patient states he is currently taking azithromycin for a left- sided ear infection he states his urine is much less swollen and less painful. Patient states he has had chills and noted a fever for the past 2 days. Patient states these also had some discomfort his left groin and was concerned about his graft that he had previously performed by his vascular surgeon. Patient denies any abdominal pain doesn't chest pain nausea vomiting or flank pain dysuria urgency frequency or cough. Patient denies blistering of the skin. Patient states that he initially noticed this yesterday but the redness has been progressive. Patient has no additional complaints and upon arrival is febrile. - Related Data Home Medications Medication Instructions Recorded Confirmed Aspirin 81 mg PO DAILY 03/26/14 09/05/19 Lisinopril 2.5 mg PO DAILY 03/26/14 09/05/19 Metoprolol Tartrate [Lopressor] 50 mg PO AC-BRKFST 03/26/14 09/05/19 Cholecalciferol [Vitamin D3 (25 5,000 unit PO DAILY 02/11/17 09/05/19 Mcg = 1000 Iu)] Atorvastatin [Lipitor] 40 mg PO HS 04/05/17 09/05/19 Metoprolol Tartrate 25 mg PO HS 04/05/17 09/05/19 Azithromycin [Zithromax Z-pack] See Taper PO DIRECTED 09/05/19 09/05/19 Fluocinolone Acetonide Oil 5 drops BOTH EARS BID PRN 09/05/19 09/05/19 [Fluocinolone Acetonide Oil (Otic)] Allergies Allergy/AdvReac Type Severity Reaction Status Date / Time No Known Allergies Allergy Verified 09/05/19 21:48 Review of Systems ROS Statement: Those systems with pertinent positive or pertinent negative responses have been documented in the HPI. ROS Other: All systems not noted in ROS Statement are negative. Past Medical History Past Medical History: GI Bleed, Hyperlipidemia, Hypertension Additional Past Medical History / Comment(s): hx polyps History of Any Multi-Drug Resistant Organisms: None Reported Past Surgical History: Coronary Bypass/CABG, Hernia Repair, Orthopedic Surgery, Tonsillectomy Additional Past Surgical History / Comment(s): May 2012 5 vessel CABG, R and L inguinal hernia repairs, bilateral shoulder surgery, AAA repair 2015, rt carotid surgery Past Anesthesia/Blood Transfusion Reactions: No Reported Reaction Additional Past Anesthesia/Blood Transfusion Reaction / Comment(s): Pt has never recieved blood to his knowledge Past Psychological History: No Psychological Hx Reported Past Alcohol Use History: None Reported Past Drug Use History: None Reported - Past Family History Father Family Medical History: Coronary Artery Disease (CAD), Myocardial Infarction ([place]) Mother Family Medical History: Diabetes Mellitus General Exam - General Exam Comments Initial Comments: General: The patient is awake and alert, in no distress Eye: Pupils are equal, round and reactive to light, extra-ocular movements are intact. No nystagmus. There is normal conjunctiva bilaterally. No signs of icterus. Ears, nose, mouth and throat: There are moist mucous membranes and no oral lesions. Mild erythema left TM, no pain or swelling to mastoid bone. Neck: The neck is supple, there is no tenderness or JVD. Cardiovascular: There is a regular rate and rhythm. No murmur, rub or gallop is appreciated. Respiratory: Lungs are clear to auscultation, respirations are non-labored, breath sounds are equal. No wheezes, stridor, rales, or rhonchi. Gastrointestinal: Soft, non-distended, non-tender abdomen without masses or organomegaly noted. There is no rebound or guarding present. No pulsatile mass. Musculoskeletal: Normal ROM, no tenderness. Strength 5/5. Sensation intact. DP pulses equal bilaterally 2+. Neurological: A&O x 3. CN II-XII intact grossly, There are no obvious motor or sensory deficits. Coordination appears grossly intact. Speech is normal. Skin: Skin is warm and dry. Redness with warmth extending from ankle to mid/upper left thigh. Some swelling noted. Psychiatric: Cooperative, appropriate mood & affect, normal judgment. Course Vital Signs 09/05/19 09/05/19 09/05/19 20:00 20:58 22:19 Temperature 99.7 F H 100.3 F H 103.1 F H Pulse Rate 83 78 Respiratory 18 16 Rate Blood Pressure 124/67 107/69 O2 Sat by Pulse 100 95 Oximetry Medical Decision Making - Medical Decision Making This a 4-year-old male presenting today for chief complaint of fever and left leg redness. There is an extensive cellulitis and physical examination. Patient's family was concerned of deep venous thrombosis ultrasound negative for DVT. Patient states he is also having some groin discomfort was concerned of his graft CT angiography obtained revealing no changes of AAA, patent stents and some peripheral disease non-occluding. Patient has strong peripheral DP pulses. Patient fever persistent/climbing despite treatment. With Fever >38c concern for failure outpatient oral antibiotics also the extensive nature of cellulitis is concerning. Patient given rocephin as broad spectrum antibiotic with a clindamycin as a more specifictreatment for antibiotic for soft tissues infection. Patient case discussed with Dr. Beavers who is agreeable to care plan and admission at this time. Patient is agreeable to admission. IVF ordered. Rin accepted admission - Lab Data Result diagrams: 09/05/19 20:26 09/05/19 20:26 Lab Results 09/05/19 09/05/19 09/05/19 Range/Units 20:26 20:26 20:26 WBC 12.4 H (3.8-10.6) k/uL RBC 4.26 L (4.30-5.90) m/uL Hgb 14.0 (13.0-17.5) gm/dL Hct 41.7 (39.0-53.0) % MCV 97.8 (80.0-100.0) fL MCH 32.9 (25.0-35.0) pg MCHC 33.6 (31.0-37.0) g/dL RDW 13.9 (11.5-15.5) % Plt Count 147 L (150-450) k/uL Neutrophils % 89 % Lymphocytes % 5 % Monocytes % 5 % Eosinophils % 0 % Basophils % 0 % Neutrophils # 11.0 H (1.3-7.7) k/uL Lymphocytes # 0.6 L (1.0-4.8) k/uL Monocytes # 0.6 (0-1.0) k/uL Eosinophils # 0.0 (0-0.7) k/uL Basophils # 0.0 (0-0.2) k/uL PT 11.8 (9.0-12.0) sec INR 1.2 H (<1.2) APTT 27.4 (22.0-30.0) sec Sodium 134 L (137-145) mmol/L Potassium 4.2 (3.5-5.1) mmol/L Chloride 101 (98-107) mmol/L Carbon Dioxide 27 (22-30) mmol/L Anion Gap 6 mmol/L BUN 22 H (9-20) mg/dL Creatinine 1.31 H (0.66-1.25) mg/dL Est GFR (CKD-EPI)AfAm 66 (>60 ml/min/1.73 sqM) Est GFR (CKD-EPI)NonAf 57 (>60 ml/min/1.73 sqM) Glucose 124 H (74-99) mg/dL Plasma Lactic Acid Malik (0.7-2.0) mmol/L Calcium 8.6 (8.4-10.2) mg/dL Total Bilirubin 0.6 (0.2-1.3) mg/dL AST 27 (17-59) U/L ALT 20 (4-49) U/L Alkaline Phosphatase 56 (38-126) U/L Total Protein 6.1 L (6.3-8.2) g/dL Albumin 3.4 L (3.5-5.0) g/dL Urine Color Urine Appearance (Clear) Urine pH (5.0-8.0) Ur Specific [place] (1.001-1.035) Urine Protein (Negative) Urine Glucose (UA) (Negative) Urine Ketones (Negative) Urine Blood (Negative) Urine Nitrite (Negative) Urine Bilirubin (Negative) Urine Urobilinogen (<2.0) mg/dL Ur Leukocyte Esterase (Negative) Urine RBC (0-5) /hpf Urine WBC (0-5) /hpf Ur Squamous Epith Cells (0-4) /hpf Hyaline Casts (0-2) /lpf Urine Mucus (None) /hpf 07/14/20 07/14/20 Range/Units 20:26 20:51 WBC (3.8-10.6) k/uL RBC (4.30-5.90) m/uL Hgb (13.0-17.5) gm/dL Hct (39.0-53.0) % MCV (80.0-100.0) fL MCH (25.0-35.0) pg MCHC (31.0-37.0) g/dL RDW (11.5-15.5) % Plt Count (150-450) k/uL Neutrophils % % Lymphocytes % % Monocytes % % Eosinophils % % Basophils % % Neutrophils # (1.3-7.7) k/uL Lymphocytes # (1.0-4.8) k/uL Monocytes # (0-1.0) k/uL Eosinophils # (0-0.7) k/uL Basophils # (0-0.2) k/uL PT (9.0-12.0) sec INR (<1.2) APTT (22.0-30.0) sec Sodium (137-145) mmol/L Potassium (3.5-5.1) mmol/L Chloride (98-107) mmol/L Carbon Dioxide (22-30) mmol/L Anion Gap mmol/L BUN (9-20) mg/dL Creatinine (0.66-1.25) mg/dL Est GFR (CKD-EPI)AfAm (>60 ml/min/1.73 sqM) Est GFR (CKD-EPI)NonAf (>60 ml/min/1.73 sqM) Glucose (74-99) mg/dL Plasma Lactic Acid Malik 1.1 (0.7-2.0) mmol/L Calcium (8.4-10.2) mg/dL Total Bilirubin (0.2-1.3) mg/dL AST (17-59) U/L ALT (4-49) U/L Alkaline Phosphatase (38-126) U/L Total Protein (6.3-8.2) g/dL Albumin (3.5-5.0) g/dL Urine Color Yellow Urine Appearance Clear (Clear) Urine pH 6.0 (5.0-8.0) Ur Specific [place] 1.018 (1.001-1.035) Urine Protein Trace H (Negative) Urine Glucose (UA) Negative (Negative) Urine Ketones Negative (Negative) Urine Blood Moderate H (Negative) Urine Nitrite Negative (Negative) Urine Bilirubin Negative (Negative) Urine Urobilinogen <2.0 (<2.0) mg/dL Ur Leukocyte Esterase Negative (Negative) Urine RBC 12 H (0-5) /hpf Urine WBC 1 (0-5) /hpf Ur Squamous Epith Cells <1 (0-4) /hpf Hyaline Casts 3 H (0-2) /lpf Urine Mucus Rare H (None) /hpf Disposition Clinical Impression: Left leg cellulitis, Fever, Leukocytosis, History of abdominal aortic aneurysm (AAA), PAD (peripheral artery disease) Disposition: ADMITTED IP TO THIS [facility] Condition: Stable Is patient prescribed a controlled substance at d/c from ED?: No Referrals: Adarsh Carroll MD [Primary Care Provider] - 1-2 days Time of Disposition: 22:59 Decision to Admit Reason: Admit from EC Decision Date: 09/05/19 Decision Time: 22:59
[2019-09-05] MEDS ORDERED: NALOXONE 0.4 MG/ML 1 ML VIAL IV PRN (23:00)
[2019-09-05] MEDS ORDERED: SODIUM CHLORIDE 0.9% 1,000 ML IV ONE (23:05)
[2019-09-06] MEDS ORDERED: VANCOMYCIN IV PER PHARMACY 1 EACH MISC MISCELLANE PRN (00:28)
[2019-09-06] MEDS: VANCOMYCIN 1,500 MG in SODIUM CHLORIDE 0.9% 250 ML IVPB SCH ×2 (01:28→18:25)
--- NOTE | 2019-09-06 03:04 | P.HPIM ---
History of Present Illness H&P Date: 09/05/19 Chief Complaint: left leg reddness and pain 64-year-old male with hypertension currently artery disease status post CABG, hyperlipidemia history of AAA repair with graft Patient comes in with 2 day history of cramps and redness in his left leg. He started noticing redness around the graft harvesting site of his left leg with some swelling around it and then noticed some slight redness in his left groin with point tenderness reports pain of 7 out of 10 in severity worse with movement he denies any fevers or chills he reports that he 3 weeks ago had some ear infection and has been getting some eardrops however couple days ago he called his primary care physician for a follow-up and and still reported some left ear pain for which she was given Z-Antonio he took 2-3 doses of that. However today his daughter saw his leg and was concerned regarding infection and recommended that he goes to the hospital he otherwise denies any fevers, chest pain, trouble breathing at home he denies any injuries to the legs he denies any recent traveling. He denies any recent hospitalization. However he does report some chills In the ED he was found to be febrile with elevated white count and left lower extremity changes suggestive of cellulitis he was admitted for IV antibiotics and following up blood cultures due to history of AAA repair with graft Venous Doppler ultrasound showed no evidence of acute DVT CT angiogram showed evidence of aortoiliac endograft and severe stenosis at the femoral artery Review of Systems Pertinent positives as noted in HPI. All other systems were reviewed and are negative Past Medical History Past Medical History: Coronary Artery Disease (CAD), GI Bleed, Hyperlipidemia, Hypertension Additional Past Medical History / Comment(s): hx polyps, AAA, History of Any Multi-Drug Resistant Organisms: None Reported Past Surgical History: Coronary Bypass/CABG, Hernia Repair, Orthopedic Surgery, Tonsillectomy Additional Past Surgical History / Comment(s): May 2012 5 vessel CABG, R and L inguinal hernia repairs, bilateral shoulder surgery, AAA repair 2015, rt carotid surgery Past Anesthesia/Blood Transfusion Reactions: No Reported Reaction Additional Past Anesthesia/Blood Transfusion Reaction / Comment(s): Pt has never recieved blood to his knowledge Past Psychological History: No Psychological Hx Reported Additional Psychological History / Comment(s): Pt lives with his in their home. He is independent. He drives a car. Smoking Status: Former smoker Past Alcohol Use History: None Reported Additional Past Alcohol Use History / Comment(s): smoked 40 years 1ppd quit 2012 Past Drug Use History: None Reported - Past Family History Father Family Medical History: Coronary Artery Disease (CAD), Myocardial Infarction ([place]) Mother Family Medical History: Diabetes Mellitus Medications and Allergies Home Medications Medication Instructions Recorded Confirmed Type Aspirin 81 mg PO DAILY 03/26/14 09/05/19 History Lisinopril 2.5 mg PO DAILY 03/26/14 09/05/19 History Metoprolol Tartrate [Lopressor] 50 mg PO AC-BRKFST 03/26/14 09/05/19 History Cholecalciferol [Vitamin D3 (25 5,000 unit PO DAILY 02/11/17 09/05/19 History Mcg = 1000 Iu)] Atorvastatin [Lipitor] 40 mg PO HS 04/05/17 09/05/19 History Metoprolol Tartrate 25 mg PO HS 04/05/17 09/05/19 History Azithromycin [Zithromax Z-pack] See Taper PO DIRECTED 09/05/19 09/05/19 History Fluocinolone Acetonide Oil 5 drops BOTH EARS BID PRN 09/05/19 09/05/19 History [Fluocinolone Acetonide Oil (Otic)] Allergies Allergy/AdvReac Type Severity Reaction Status Date / Time No Known Allergies Allergy Verified 09/05/19 21:48 Physical Exam Vitals: Vital Signs Temp Pulse Pulse Resp BP BP BP 09/06/19 02:08 98.5 F 63 16 111/66 09/06/19 00:07 98.6 F 63 16 130/69 09/05/19 23:35 102.4 F H 09/05/19 23:28 98.6 F 59 L 18 130/69 09/05/19 22:19 103.1 F H 78 16 107/69 09/05/19 20:58 100.3 F H 09/05/19 20:00 99.7 F H 83 18 124/67 Pulse Ox 09/06/19 02:08 95 09/06/19 00:07 96 09/05/19 23:35 09/05/19 23:28 97 09/05/19 22:19 95 09/05/19 20:58 09/05/19 20:00 100 Intake and Output 09/05/19 09/05/19 09/06/19 14:59 22:59 06:59 Other: Weight 86.183 kg 86.183 kg Constitutional: No acute distress, conversant, pleasant Eyes: Anicteric sclerae, moist conjunctiva, Pupils equal round reactive to light ENMT: NC/AT Oropharynx clear, no erythema, or exudates Neck: Supple, FROM, no masses, or JVD No carotid bruits No thyromegaly Lungs: Clear to auscultation Clear to percussion Normal respiratory effort, no accessory muscle use Cardiovascular: Heart regular in rate and rhythm, No murmurs, gallops, or rubs No peripheral edema Abdominal: Soft Nontender, no guarding, rebound or rigidity Abdomen moving with respiration Normoactive bowel sounds No hepatomegaly, No splenomegaly No palpable mass No abdominal wall hernia noted Skin: Significant erythema and swelling over the left leg around the site of graft harvesting no drainage no open wounds, there is lesser extent erythema over the left inner thigh but significant induration and tenderness to deep palpation again no open wounds no drainage Normal temperature, tone, texture, turgor No induration No subcutaneous nodules No rash, lesions No ulcers Extremities: Significant erythema and swelling over the left leg around the site of graft harvesting no drainage no open wounds, there is lesser extent erythema over the left inner thigh but significant induration and tenderness to deep palpation again no open wounds no drainage No digital cyanosis No clubbing Pedal pulses intact and symmetrical Radial pulses intact and symmetrical No calf tenderness Psychiatric: Alert and oriented to person, place and time Appropriate affect fair judgement Neuro Muscles Strength 5/5 in all 4 extremities Sensation to light touch grossly present throughout Cranial nerves II-XII grossly intact No focal sensory deficits Lymphatics: no palpable cervical or supraclavicular , or inguinal lymph nodes Results CBC & Chem 7: 09/05/19 20:26 09/05/19 20:26 Labs: Abnormal Lab Results - Last 24 Hours (Table) 09/05/19 09/05/19 09/05/19 Range/Units 20:26 20:26 20:26 WBC 12.4 H (3.8-10.6) k/uL RBC 4.26 L (4.30-5.90) m/uL Plt Count 147 L (150-450) k/uL Neutrophils # 11.0 H (1.3-7.7) k/uL Lymphocytes # 0.6 L (1.0-4.8) k/uL INR 1.2 H (<1.2) Sodium 134 L (137-145) mmol/L BUN 22 H (9-20) mg/dL Creatinine 1.31 H (0.66-1.25) mg/dL Glucose 124 H (74-99) mg/dL Total Protein 6.1 L (6.3-8.2) g/dL Albumin 3.4 L (3.5-5.0) g/dL Urine Protein (Negative) Urine Blood (Negative) Urine RBC (0-5) /hpf Hyaline Casts (0-2) /lpf Urine Mucus (None) /hpf 09/05/19 Range/Units 20:51 WBC (3.8-10.6) k/uL RBC (4.30-5.90) m/uL Plt Count (150-450) k/uL Neutrophils # (1.3-7.7) k/uL Lymphocytes # (1.0-4.8) k/uL INR (<1.2) Sodium (137-145) mmol/L BUN (9-20) mg/dL Creatinine (0.66-1.25) mg/dL Glucose (74-99) mg/dL Total Protein (6.3-8.2) g/dL Albumin (3.5-5.0) g/dL Urine Protein Trace H (Negative) Urine Blood Moderate H (Negative) Urine RBC 12 H (0-5) /hpf Hyaline Casts 3 H (0-2) /lpf Urine Mucus Rare H (None) /hpf Thrombosis Risk Factor Assmnt - Choose All That Apply Each Factor Represents 1 point: Age 41-60 years Each Risk Factor Represents 2 Points: Age 61-74 years Thrombosis Risk Factor Assessment Total Risk Factor Score: 3 Thrombosis Risk Factor Assessment Level: Moderate Risk Assessment and Plan Assessment: Sepsis secondary to cellulitis of the left leg and thigh Rule out bacteremia and graft infection Blood cultures Empiric antibiotics with vancomycin In control Tylenol for fever Monitor vital signs Severe stenosis of the left femoral artery Vascular surgery consultation Chronic conditions CK D stage III stable Coronary artery disease status post CABG Hyperlipidemia Hypertension CODE STATUS full code DVT prophylaxis: Heparin subcu 3 times a day Discussed with: Patient, ER, RN Anticipated length of stay more than [address]: Home A total of 75 minutes was spent on the care of this complex patient more than 50% of the time was spent in counseling and care coordination.
[2019-09-06] MEDS: SODIUM CHLORIDE 0.9% 1,000 ML IV SCH ×3 (06:19→20:41)
[2019-09-06 07:40] LABS: Basophils % (A) 0 %; Eosinophils % (A) 0 %; HCT 37.7 % (39.0-53.0); HGB 12.1 gm/dL (13.0-17.5); Lymphocytes # (A) 0.4 k/uL (1.0-4.8); Lymphocytes % (A) 3 %; Mean Platelet Volume 8.1; Monocytes # (A) 0.8 k/uL (0-1.0); Monocytes % (A) 6 %; Neutrophils # (A) 10.8 k/uL (1.3-7.7); Neutrophils % (A) 88 %; Platelet Count 146 k/uL (150-450); RBC 3.89 m/uL (4.30-5.90); RDW 14.2 % (11.5-15.5); WBC 12.2 k/uL (3.8-10.6)
[2019-09-06 07:45] LABS: Albumin 2.8 g/dL (3.5-5.0); Calcium 7.4 mg/dL (8.4-10.2); Potassium 4.2 mmol/L (3.5-5.1); Total Bilirubin 0.5 mg/dL (0.2-1.3); Total Protein 5.3 g/dL (6.3-8.2)
[2019-09-06] MEDS: METOPROLOL TARTRATE 25 MG TAB PO SCH ×2 (08:13→20:41)
[2019-09-06] MEDS: ASPIRIN 81 MG PO SCH (08:13)
[2019-09-06] MEDS: ACETAMINOPHEN TAB 325 MG TAB PO PRN ×2 (08:13→20:42)
[2019-09-06] MEDS: HEPARIN SODIUM,PORCINE 5,000 UNIT/ML 1 ML VIAL SQ SCH ×3 (08:13→23:47)
--- NOTE | 2019-09-06 11:24 | P.PN ---
Subjective Progress Note Date: 09/06/19 Feels okay, no chest pain, no abdominal pain, no nausea no vomiting, T-max 102.4 Objective - Vital Signs Vital signs: Vital Signs Temp 100.2 F H 09/06/19 07:00 Pulse 63 09/06/19 07:35 Resp 16 09/06/19 07:35 BP 112/64 09/06/19 07:00 Pulse Ox 93 L 09/06/19 07:00 Intake & Output 09/05/19 09/06/19 09/06/19 18:59 06:59 18:59 Weight 86.183 kg Other: # Voids 1 1 - Exam Constitutional: No acute distress, conversant, pleasant Eyes: Anicteric sclerae, moist conjunctiva, no lid-lag, PERRLA ENMT: NC/AT,Oropharynx clear, no erythema, exudates Neck:Supple, FROM, no masses, or JVD Lungs: Clear to auscultation, Clear to percussion, Cardiovascular: Heart regular in rate and rhythm, No murmurs, gallops, or rubs no peripheral edema Abdominal: Soft Nontender, nom distended, no guarding, no rebound or rigidity, Normoactive bowel sounds No hepatomegaly, No splenomegaly, No palpable mass No abdominal wall hernia noted Skin: Normal temperature, tone, texture, turgor, No induration No subcutaneous nodules, No rash, lesions, No ulcers Extremities:No digital cyanosis No clubbing, Pedal pulses intact and symmetrical Radial pulses intact and symmetrical Normal gait and station, No calf tenderness Psychiatric: Alert and oriented to person, place and time, Appropriate affect Intact judgement Neuro: Muscles Strength 5/5 in all 4 extremities, Sensation to light touch grossly present throughout, Cranial nerves II-XII grossly intact. No focal sen danielle deficits - Labs CBC & Chem 7: 09/06/19 06:41 09/06/19 06:41 Labs: Abnormal Lab Results - Last 24 Hours (Table) 09/05/19 09/05/19 09/05/19 Range/Units 20:26 20:26 20:26 WBC 12.4 H (3.8-10.6) k/uL RBC 4.26 L (4.30-5.90) m/uL Hgb (13.0-17.5) gm/dL Hct (39.0-53.0) % Plt Count 147 L (150-450) k/uL Neutrophils # 11.0 H (1.3-7.7) k/uL Lymphocytes # 0.6 L (1.0-4.8) k/uL INR 1.2 H (<1.2) Sodium 134 L (137-145) mmol/L BUN 22 H (9-20) mg/dL Creatinine 1.31 H (0.66-1.25) mg/dL Glucose 124 H (74-99) mg/dL Calcium (8.4-10.2) mg/dL Total Protein 6.1 L (6.3-8.2) g/dL Albumin 3.4 L (3.5-5.0) g/dL Urine Protein (Negative) Urine Blood (Negative) Urine RBC (0-5) /hpf Hyaline Casts (0-2) /lpf Urine Mucus (None) /hpf 09/05/19 09/06/19 09/06/19 Range/Units 20:51 06:41 06:41 WBC 12.2 H (3.8-10.6) k/uL RBC 3.89 L (4.30-5.90) m/uL Hgb 12.1 L (13.0-17.5) gm/dL Hct 37.7 L (39.0-53.0) % Plt Count 146 L (150-450) k/uL Neutrophils # 10.8 H (1.3-7.7) k/uL Lymphocytes # 0.4 L (1.0-4.8) k/uL INR (<1.2) Sodium (137-145) mmol/L BUN 22 H (9-20) mg/dL Creatinine (0.66-1.25) mg/dL Glucose (74-99) mg/dL Calcium 7.4 L (8.4-10.2) mg/dL Total Protein 5.3 L (6.3-8.2) g/dL Albumin 2.8 L (3.5-5.0) g/dL Urine Protein Trace H (Negative) Urine Blood Moderate H (Negative) Urine RBC 12 H (0-5) /hpf Hyaline Casts 3 H (0-2) /lpf Urine Mucus Rare H (None) /hpf Microbiology - Last 24 Hours (Table) 09/05/19 20:26 Blood Culture - Final Blood Assessment and Plan Plan: Sepsis secondary to cellulitis of the left leg and thigh Blood cultures gram-positive cocci Continue with vancomycin consider ID consultation wbc stable at 12,000 Obtain a 2-D echo Severe stenosis of the left femoral artery Vascular surgery consultation Chronic conditions CKD stage III stable Coronary artery disease status post CABG Hyperlipidemia Essential Hypertension CODE STATUS full code DVT prophylaxis: Heparin subcu 3 times a day Discussed with: Patient, RN Anticipated length of stay more than [address]: Home
--- NOTE | 2019-09-06 16:33 | P.GSCN ---
History of Present Illness History of present illness: Patient is well known to me from my office patient had a And graft and in the past. Patient also had a left carotid and directly done in the past. Patient came with marked cellulitis of left lower extremity ultrasound shows no DVT there is hyperechoic area of 4 of 2.5 x 2.2 x 1 in the left groin. On examination neck is supple no bruit appreciated Abdomen soft nontender first and second sound normal good entry both lungs. Vascular examination femoral pulses are palpable bilateral dorsal pedis is palpable patient has a marked cellulitis of left lower extremity ultrasound shows no DVT left great saphenous vein has been removed in the past Plan is patient is an IV antibiotic and we will use Silvadene cream to left lower extremity with compression wrap follow with you computed tomography scan of the abdomen shows no endoleak the left SFA atherosclerosis disease which is chronic Past Medical History Past Medical History: Coronary Artery Disease (CAD), GI Bleed, Hyperlipidemia, Hypertension Additional Past Medical History / Comment(s): hx polyps, AAA, History of Any Multi-Drug Resistant Organisms: None Reported Past Surgical History: Coronary Bypass/CABG, Hernia Repair, Orthopedic Surgery, Tonsillectomy Additional Past Surgical History / Comment(s): May 2012 5 vessel CABG, R and L inguinal hernia repairs, bilateral shoulder surgery, AAA repair 2015, rt carotid surgery Past Anesthesia/Blood Transfusion Reactions: No Reported Reaction Additional Past Anesthesia/Blood Transfusion Reaction / Comm: Pt has never recieved blood to his knowledge Past Psychological History: No Psychological Hx Reported Additional Psychological History / Comment(s): Pt lives with his in their home. He is independent. He drives a car. Smoking Status: Former smoker Past Alcohol Use History: None Reported Additional Past Alcohol Use History / Comment(s): smoked 40 years 1ppd quit 2012 Past Drug Use History: None Reported - Past Family History Father Family Medical History: Coronary Artery Disease (CAD), Myocardial Infarction ([place]) Mother Family Medical History: Diabetes Mellitus Medications and Allergies Home Medications Medication Instructions Recorded Confirmed Type RX: Aspirin 81 mg PO DAILY 03/26/14 09/05/19 History RX: Lisinopril 2.5 mg PO DAILY 03/26/14 09/05/19 History RX: Metoprolol Tartrate [Lopressor] 50 mg PO AC-BRKFST 03/26/14 09/05/19 History RX: Cholecalciferol [Vitamin D3 5,000 unit PO DAILY 02/11/17 09/05/19 History (25 Mcg = 1000 Iu)] RX: Atorvastatin [Lipitor] 40 mg PO HS 04/05/17 09/05/19 History RX: Metoprolol Tartrate 25 mg PO HS 04/05/17 09/05/19 History Azithromycin [Zithromax Z-pack] See Taper PO DIRECTED 09/05/19 09/05/19 History Fluocinolone Acetonide Oil 5 drops BOTH EARS BID PRN 09/05/19 09/05/19 History [Fluocinolone Acetonide Oil (Otic)] Allergies Allergy/AdvReac Type Severity Reaction Status Date / Time No Known Allergies Allergy Verified 09/05/19 21:48 Surgical - Exam Vital Signs Temp Pulse Resp BP Pulse Ox 99.7 F H 83 18 124/67 100 09/05/19 20:00 09/05/19 20:00 09/05/19 20:00 09/05/19 20:00 09/05/19 20:00 Results - Labs 09/06/19 06:41 09/06/19 06:41 Abnormal Lab Results - Last 24 Hours (Table) 09/05/19 09/05/19 09/05/19 Range/Units 20:26 20:26 20:26 WBC 12.4 H (3.8-10.6) k/uL RBC 4.26 L (4.30-5.90) m/uL Hgb (13.0-17.5) gm/dL Hct (39.0-53.0) % Plt Count 147 L (150-450) k/uL Neutrophils # 11.0 H (1.3-7.7) k/uL Lymphocytes # 0.6 L (1.0-4.8) k/uL INR 1.2 H (<1.2) Sodium 134 L (137-145) mmol/L BUN 22 H (9-20) mg/dL Creatinine 1.31 H (0.66-1.25) mg/dL Glucose 124 H (74-99) mg/dL Calcium (8.4-10.2) mg/dL Total Protein 6.1 L (6.3-8.2) g/dL Albumin 3.4 L (3.5-5.0) g/dL Urine Protein (Negative) Urine Blood (Negative) Urine RBC (0-5) /hpf Hyaline Casts (0-2) /lpf Urine Mucus (None) /hpf 09/05/19 09/06/19 09/06/19 Range/Units 20:51 06:41 06:41 WBC 12.2 H (3.8-10.6) k/uL RBC 3.89 L (4.30-5.90) m/uL Hgb 12.1 L (13.0-17.5) gm/dL Hct 37.7 L (39.0-53.0) % Plt Count 146 L (150-450) k/uL Neutrophils # 10.8 H (1.3-7.7) k/uL Lymphocytes # 0.4 L (1.0-4.8) k/uL INR (<1.2) Sodium (137-145) mmol/L BUN 22 H (9-20) mg/dL Creatinine (0.66-1.25) mg/dL Glucose (74-99) mg/dL Calcium 7.4 L (8.4-10.2) mg/dL Total Protein 5.3 L (6.3-8.2) g/dL Albumin 2.8 L (3.5-5.0) g/dL Urine Protein Trace H (Negative) Urine Blood Moderate H (Negative) Urine RBC 12 H (0-5) /hpf Hyaline Casts 3 H (0-2) /lpf Urine Mucus Rare H (None) /hpf Microbiology - Last 24 Hours (Table) 09/05/19 20:26 Blood Culture - Final Blood Diabetes panel 09/05/19 09/06/19 Range/Units 20:26 06:41 Sodium 134 L 137 (137-145) mmol/L Potassium 4.2 4.2 (3.5-5.1) mmol/L Chloride 101 106 (98-107) mmol/L Carbon Dioxide 27 23 (22-30) mmol/L BUN 22 H 22 H (9-20) mg/dL Creatinine 1.31 H 1.18 (0.66-1.25) mg/dL Glucose 124 H 95 (74-99) mg/dL Calcium 8.6 7.4 L (8.4-10.2) mg/dL AST 27 25 (17-59) U/L ALT 20 18 (4-49) U/L Alkaline Phosphatase 56 59 (38-126) U/L Total Protein 6.1 L 5.3 L (6.3-8.2) g/dL Albumin 3.4 L 2.8 L (3.5-5.0) g/dL Calcium panel 09/05/19 09/06/19 Range/Units 20:26 06:41 Calcium 8.6 7.4 L (8.4-10.2) mg/dL Albumin 3.4 L 2.8 L (3.5-5.0) g/dL Pituitary panel 09/05/19 09/06/19 Range/Units 20:26 06:41 Sodium 134 L 137 (137-145) mmol/L Potassium 4.2 4.2 (3.5-5.1) mmol/L Chloride 101 106 (98-107) mmol/L Carbon Dioxide 27 23 (22-30) mmol/L BUN 22 H 22 H (9-20) mg/dL Creatinine 1.31 H 1.18 (0.66-1.25) mg/dL Glucose 124 H 95 (74-99) mg/dL Calcium 8.6 7.4 L (8.4-10.2) mg/dL Adrenal panel 09/05/19 09/06/19 Range/Units 20:26 06:41 Sodium 134 L 137 (137-145) mmol/L Potassium 4.2 4.2 (3.5-5.1) mmol/L Chloride 101 106 (98-107) mmol/L Carbon Dioxide 27 23 (22-30) mmol/L BUN 22 H 22 H (9-20) mg/dL Creatinine 1.31 H 1.18 (0.66-1.25) mg/dL Glucose 124 H 95 (74-99) mg/dL Calcium 8.6 7.4 L (8.4-10.2) mg/dL Total Bilirubin 0.6 0.5 (0.2-1.3) mg/dL AST 27 25 (17-59) U/L ALT 20 18 (4-49) U/L Alkaline Phosphatase 56 59 (38-126) U/L Total Protein 6.1 L 5.3 L (6.3-8.2) g/dL Albumin 3.4 L 2.8 L (3.5-5.0) g/dL
--- NOTE | 2019-09-06 17:56 | ECHOF ---
Referral Reason:Bacteremia MEASUREMENTS -------- HEIGHT: 175.3 cm WEIGHT: 86.2 kg BP: 112/64 RVIDd: 3.6 cm (< 3.3) IVSd: 1.4 cm (0.6 - 1.1) LVIDd: 4.9 cm (3.9 - 5.3) LVPWd: 1.1 cm (0.6 - 1.1) IVSs: 1.7 cm LVIDs: 4.0 cm LVPWs: 1.3 cm LA Diam: 4.0 cm (2.7 - 3.8) LAESV Index (A-L): 31.50 ml/m Ao Diam: 3.4 cm (2.0 - 3.7) AV Cusp: 1.1 cm (1.5 - 2.6) MV EXCURSION: 11.800 mm (> 18.000) MV EF SLOPE: 30 mm/s (70 - 150) EPSS: 1.2 cm MV E Kenneth: 2.32 m/s MV DecT: 382 ms MV A Kenneth: 1.30 m/s MV E/A Ratio: 1.78 AV maxP.55 mmHg AV meanP.77 mmHg FINDINGS -------- Sinus rhythm. This was a technically difficult study with suboptimal apical views. The left ventricular size is normal. There is moderate concentric left ventricular hypertrophy. O verall left ventricular systolic function is mildly impaired with, an EF between 45 - 50 %. Apical anterior LV wall motion is hypokinetic. Apical lateral LV wall motion is hypokinetic. Apical in ferior LV wall motion is hypokinetic. Apical septum LV wall motion is hypokinetic. The right ventricle is mildly enlarged. LA is midly dilated 29-33ml/m2. The right atrial size is normal. 3 ml of Lumason was utilized for enhancement of images. There is mild aortic valve sclerosis. There is mild aortic stenosis present. Mild mitral annular calcification present. Mild mitral regurgitation is present. The peak and me an MV gradients are 26.66mmHg 9.74mmHg as measured by doppler. Moderate mitral stenosis. MV Repai r. The tricuspid valve was not well visualized. The pulmonic valve was not well visualized. The aortic root size is normal. Normal inferior vena cava with normal inspiratory collapse consistent with estimated right atrial pre ssure of 5 mmHg. There is no pericardial effusion. CONCLUSIONS -------- 1. This was a technically difficult study with suboptimal apical views. 2. There is moderate concentric left ventricular hypertrophy. 3. Overall left ventricular systolic function is mildly impaired with, an EF between 45 - 50 %. 4. Apical anterior LV wall motion is hypokinetic. 5. Apical lateral LV wall motion is hypokinetic. 6. Apical inferior LV wall motion is hypokinetic. 7. Apical septum LV wall motion is hypokinetic. 8. The right ventricle is mildly enlarged. 9. LA is midly dilated 29-33ml/m2. 10. 3 ml of Lumason was utilized for enhancement of images. 11. There is mild aortic valve sclerosis. 12. There is mild aortic stenosis present. 13. Mild mitral annular calcification present. 14. Mild mitral regurgitation is present. 15. The peak and mean MV gradients are 26.66mmHg 9.74mmHg as measured by doppler. 16. Moderate mitral stenosis. 17. MV Repair. 18. The tricuspid valve was not well visualized. 19. There is no pericardial effusion. LAP WELDER: Cynthia High RDCS
[2019-09-06] MEDS: ATORVASTATIN 40 MG TAB PO SCH (20:41)
--- NOTE | 2019-09-07 00:14 | P.CONS ---
History of Present Illness - Reason for Consult Consult date: 09/06/19 bacteremia Requesting physician: Kika Duenas - Chief Complaint left leg swelling and redness x 3 days - History of Present Illness patient is a 64-year-old male presenting to the ER at [facility] with left lower extremity pain swelling redness that has been going on for about 3 days before he presented to hospital, patient denies any history of trauma to the left leg, patient did have diffuse swelling and redness to the left leg that has progressively increased in size, patient complaining of some throbbing pain in the left intensity is about 6-7 out of 10 and no radiation currently with no wound or any drainage patient be complaining of fever with chills with these symptoms the patient was evaluated by the ER physician on arrival to the ER patient did have a few subsequently spike a fever of 103F patient also have elevated white count, patient did have left lower extremity Doppler was negative for DVT did shows evidence of lymphadenopathy in the groin, patient did have blood culture drawn which can be positive with gram-positive cocci patient has been treated with the vancomycin and infectious disease was consulted for further management of antibiotic therapy Review of Systems Positive point has been mentioned in the HPI rest of the systems are negative Past Medical History Past Medical History: Coronary Artery Disease (CAD), GI Bleed, Hyperlipidemia, Hypertension Additional Past Medical History / Comment(s): hx polyps, AAA, History of Any Multi-Drug Resistant Organisms: None Reported Past Surgical History: Coronary Bypass/CABG, Hernia Repair, Orthopedic Surgery, Tonsillectomy Additional Past Surgical History / Comment(s): May 2012 5 vessel CABG, R and L inguinal hernia repairs, bilateral shoulder surgery, AAA repair 2015, rt carotid surgery Past Anesthesia/Blood Transfusion Reactions: No Reported Reaction Additional Past Anesthesia/Blood Transfusion Reaction / Comm: Pt has never recieved blood to his knowledge Past Psychological History: No Psychological Hx Reported Additional Psychological History / Comment(s): Pt lives with his in their home. He is independent. He drives a car. Smoking Status: Former smoker Past Alcohol Use History: None Reported Additional Past Alcohol Use History / Comment(s): smoked 40 years 1ppd quit 2012 Past Drug Use History: None Reported - Past Family History Father Family Medical History: Coronary Artery Disease (CAD), Myocardial Infarction ([place]) Mother Family Medical History: Diabetes Mellitus Medications and Allergies Home Medications Medication Instructions Recorded Confirmed Type Aspirin 81 mg PO DAILY 03/26/14 09/05/19 History Lisinopril 2.5 mg PO DAILY 03/26/14 09/05/19 History Metoprolol Tartrate [Lopressor] 50 mg PO AC-BRKFST 03/26/14 09/05/19 History Cholecalciferol [Vitamin D3 (25 5,000 unit PO DAILY 02/11/17 09/05/19 History Mcg = 1000 Iu)] Atorvastatin [Lipitor] 40 mg PO HS 04/05/17 09/05/19 History Metoprolol Tartrate 25 mg PO HS 04/05/17 09/05/19 History Azithromycin [Zithromax Z-pack] See Taper PO DIRECTED 09/05/19 09/05/19 History Fluocinolone Acetonide Oil 5 drops BOTH EARS BID PRN 09/05/19 09/05/19 History [Fluocinolone Acetonide Oil (Otic)] Allergies Allergy/AdvReac Type Severity Reaction Status Date / Time No Known Allergies Allergy Verified 09/05/19 21:48 Physical Exam Vitals: Vital Signs Temp Pulse Pulse Resp BP BP BP 09/06/19 14:38 99.1 F 72 18 125/70 09/06/19 07:35 63 16 09/06/19 07:00 100.2 F H 71 18 112/64 09/06/19 02:08 98.5 F 63 16 111/66 09/06/19 00:07 98.6 F 63 16 130/69 09/05/19 23:35 102.4 F H 09/05/19 23:28 98.6 F 59 L 18 130/69 09/05/19 22:19 103.1 F H 78 16 107/69 09/05/19 20:58 100.3 F H 09/05/19 20:00 99.7 F H 83 18 124/67 Pulse Ox 09/06/19 14:38 95 09/06/19 07:35 09/06/19 07:00 93 L 09/06/19 02:08 95 09/06/19 00:07 96 09/05/19 23:35 09/05/19 23:28 97 09/05/19 22:19 95 09/05/19 20:58 09/05/19 20:00 100 Intake and Output 09/06/19 09/06/19 09/06/19 06:59 14:59 22:59 Output Total 300 Balance -300 Output: Urine 300 Other: # Voids 1 1 Weight 86.183 kg GENERAL DESCRIPTION: anteriorly male lying in bed, no distress. No tachypnea or accessory muscle of respiration use. HEENT: Shows Pallor , no scleral icterus. Oral mucous membrane is dry. No pharyngeal erythema or thrush NECK: Trachea central, no thyromegaly. LUNGS: Unlabored breathing. Clear to auscultation anteriorly. No wheeze or crackle. HEART: S1, S2, regular rate and rhythm. No loud murmur ABDOMEN: Soft, no tenderness , guarding or rigidity, no organomegaly EXTREMITIES: left lower extremity diffuse swelling and redness warm to touch and tender no fluctuation or drainage SKIN: No rash, no masses palpable. NEUROLOGICAL: The patient is awake, alert, oriented x3, mood and affect normal. Results CBC & Chem 7: 09/06/19 06:41 09/06/19 06:41 Labs: Abnormal Lab Results - Last 24 Hours (Table) 09/05/19 09/05/19 09/05/19 Range/Units 20:26 20:26 20:26 WBC 12.4 H (3.8-10.6) k/uL RBC 4.26 L (4.30-5.90) m/uL Hgb (13.0-17.5) gm/dL Hct (39.0-53.0) % Plt Count 147 L (150-450) k/uL Neutrophils # 11.0 H (1.3-7.7) k/uL Lymphocytes # 0.6 L (1.0-4.8) k/uL INR 1.2 H (<1.2) Sodium 134 L (137-145) mmol/L BUN 22 H (9-20) mg/dL Creatinine 1.31 H (0.66-1.25) mg/dL Glucose 124 H (74-99) mg/dL Calcium (8.4-10.2) mg/dL Total Protein 6.1 L (6.3-8.2) g/dL Albumin 3.4 L (3.5-5.0) g/dL Urine Protein (Negative) Urine Blood (Negative) Urine RBC (0-5) /hpf Hyaline Casts (0-2) /lpf Urine Mucus (None) /hpf 09/05/19 09/06/19 09/06/19 Range/Units 20:51 06:41 06:41 WBC 12.2 H (3.8-10.6) k/uL RBC 3.89 L (4.30-5.90) m/uL Hgb 12.1 L (13.0-17.5) gm/dL Hct 37.7 L (39.0-53.0) % Plt Count 146 L (150-450) k/uL Neutrophils # 10.8 H (1.3-7.7) k/uL Lymphocytes # 0.4 L (1.0-4.8) k/uL INR (<1.2) Sodium (137-145) mmol/L BUN 22 H (9-20) mg/dL Creatinine (0.66-1.25) mg/dL Glucose (74-99) mg/dL Calcium 7.4 L (8.4-10.2) mg/dL Total Protein 5.3 L (6.3-8.2) g/dL Albumin 2.8 L (3.5-5.0) g/dL Urine Protein Trace H (Negative) Urine Blood Moderate H (Negative) Urine RBC 12 H (0-5) /hpf Hyaline Casts 3 H (0-2) /lpf Urine Mucus Rare H (None) /hpf Microbiology - Last 24 Hours (Table) 09/05/19 20:26 Blood Culture - Final Blood Assessment and Plan Assessment: 1- patient presented to hospital with sepsis in this patient who did have a cellulitis of the left lower extremity with fever and elevated white count, diffuse swelling redness likely streptococcal disease 2- patient with gram-positive bacteremia likely Streptococcus clinically doubt MRSA infection (1) Sepsis Current Visit: Yes Status: Acute Code(s): A41.9 - SEPSIS, UNSPECIFIED ORGANISM SNOMED Code(s): 62692127 (2) Left leg cellulitis Current Visit: Yes Status: Acute Code(s): L03.116 - CELLULITIS OF LEFT LOWER LIMB SNOMED Code(s): 230650543 (3) Gram-positive bacteremia Current Visit: Yes Status: Acute Code(s): R78.81 - BACTEREMIA SNOMED Code(s): 896473203284 Plan: 1- blood cultures will be repeated document clearance of bacteremia 2- discontinue vancomycin 3- start the patient cefazolin 2 g every 8 hours We will follow on clinical condition and cultures to further adjust medication if needed Thank you for this consultation will follow this patient with you Time with Patient: Greater than 30
[2019-09-07] MEDS: SODIUM CHLORIDE 0.9% 1,000 ML IV SCH ×4 (03:44→20:37)
[2019-09-07] MEDS: METOPROLOL TARTRATE 25 MG TAB PO SCH ×2 (07:45→20:38)
[2019-09-07] MEDS: ACETAMINOPHEN TAB 325 MG TAB PO PRN (07:45)
[2019-09-07] MEDS: HEPARIN SODIUM,PORCINE 5,000 UNIT/ML 1 ML VIAL SQ SCH ×2 (07:45→16:39)
[2019-09-07] MEDS: ASPIRIN 81 MG PO SCH (07:46)
[2019-09-07 07:59] LABS: Basophils % (A) 0 %; Eosinophils % (A) 0 %; HCT 39.3 % (39.0-53.0); HGB 12.9 gm/dL (13.0-17.5); Lymphocytes # (A) 0.5 k/uL (1.0-4.8); Lymphocytes % (A) 3 %; MCH 31.8 pg (25.0-35.0); MCHC 32.8 g/dL (31.0-37.0); MCV 97.2 fL (80.0-100.0); Mean Platelet Volume 8.3; Monocytes # (A) 0.9 k/uL (0-1.0); Monocytes % (A) 7 %; Neutrophils # (A) 11.7 k/uL (1.3-7.7); Neutrophils % (A) 87 %; Platelet Count 143 k/uL (150-450); RBC 4.05 m/uL (4.30-5.90); RDW 13.9 % (11.5-15.5); WBC 13.4 k/uL (3.8-10.6)
[2019-09-07 08:05] LABS: ALT 24 U/L (4-49); AST 33 U/L (17-59); African American GFR (CKD) >90 (>60 ml/min/1.73 sqM); Albumin 3.3 g/dL (3.5-5.0); Alkaline Phosphatase 72 U/L (38-126); Anion Gap 8 mmol/L; Blood Urea Nitrogen 14 mg/dL (9-20); Calcium 7.9 mg/dL (8.4-10.2); Carbon Dioxide 22 mmol/L (22-30); Chloride 104 mmol/L (98-107); Glucose 109 mg/dL (74-99); Non-African American GFR(CKD) 81 (>60 ml/min/1.73 sqM); Sodium 134 mmol/L (137-145); Total Bilirubin 0.8 mg/dL (0.2-1.3); Total Protein 6.1 g/dL (6.3-8.2)
[2019-09-07 08:18] LABS: C Reactive Protein 206.7 mg/L (<10.0)
--- NOTE | 2019-09-07 13:50 | P.PN ---
Subjective Progress Note Date: 09/07/19 Principal diagnosis: Cellulitis Patient was seen and examined. No acute events overnight. Patient reports no real changes in his left lower extremity cellulitis. Patient complains of insomnia, unable to sleep at night. He denies any chest pain, shortness of breath or palpitations. No nausea or vomiting. No fever or chills. Objective - Vital Signs Vital signs: Vital Signs Temp 102.1 F H 09/07/19 07:27 Pulse 79 09/07/19 10:55 Resp 20 09/07/19 10:55 BP 133/75 09/07/19 07:27 Pulse Ox 92 L 09/06/19 19:45 Intake & Output 09/06/19 09/07/19 09/07/19 18:59 06:59 18:59 Intake Total 1355 Output Total 300 300 500 Balance -300 1055 -500 Intake: Intake, IV Titration 955 Amount Sodium Chloride 0.9% 1, 780 000 ml @ 130 mls/hr IV . Q7H42M MARIA D Rx#:[id number] Vancomycin 1,500 mg In 125 Sodium Chloride 0.9% 250 ml @ 125 mls/hr IVPB Q16H MARIA D Rx#:[id number] ceFAZolin 2 gm In Sodium 50 Chloride 0.9% 50 ml @ 100 mls/hr IVPB Q8HR MARIA D Rx# :[id number] Oral 400 Output: Urine 300 300 500 Other: Voiding Method Toilet # Voids 1 2 2 - Exam General: [non toxic], [no distress], [appears at stated age] Derm: [warm], [dry] Head: [atraumatic], [normocephalic], [symmetric] Eyes: [EOMI], [no lid lag], [anicteric sclera] Mouth: [no lip lesion], [mucus membranes moist] Cardiovascular: [S1S2 reg], [no murmur], [positive DP pulse bilateral], Lungs: [CTA bilateral], [no rhonchi, no rales] , [no accessory muscle use] Abdominal: [soft], [ nontender to palpation], [no guarding], [no appreciable organomegaly] Ext: [no gross muscle atrophy], [no edema], [no contractures], [extensive erythema left lower extremities medial calf outlined, warm to touch] Neuro: [no focal neuro deficits] Psych: [Alert], [oriented], [appropriate affect] - Labs CBC & Chem 7: 09/07/19 07:04 09/07/19 07:04 Labs: Abnormal Lab Results - Last 24 Hours (Table) 09/07/19 09/07/19 Range/Units 07:04 07:04 WBC 13.4 H (3.8-10.6) k/uL RBC 4.05 L (4.30-5.90) m/uL Hgb 12.9 L (13.0-17.5) gm/dL Plt Count 143 L (150-450) k/uL Neutrophils # 11.7 H (1.3-7.7) k/uL Lymphocytes # 0.5 L (1.0-4.8) k/uL Sodium 134 L (137-145) mmol/L Glucose 109 H (74-99) mg/dL Calcium 7.9 L (8.4-10.2) mg/dL C-Reactive Protein 206.7 H (<10.0) mg/L Total Protein 6.1 L (6.3-8.2) g/dL Albumin 3.3 L (3.5-5.0) g/dL Microbiology - Last 24 Hours (Table) 09/05/19 20:26 Blood Culture Gram Stain - Preliminary Blood Blood Culture - Preliminary Beta Hemolytic Strep Group G 09/05/19 20:26 Blood Culture - Final Blood Assessment and Plan Assessment: Sepsis related to cellulitis with bacteremia 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 His cellulitis has not improved much since admission. Blood cultures are positive for beta-hemolytic strep group G. Infectious diseases consulted. Patient is currently on cefazolin IV. Repeat blood cultur es are ordered. Tylenol as needed for fever. Decrease IV hydration from 130 to 75 mL per hour. Vascular surgery as evaluated the patient and recommends no further inpatient workup. Patient noted to have moderate blood with 12 RBCs on urinalysis. He will need to see urology in the outpatient setting. Echocardiogram shows EF 45-50% with hypokinetic wall motion improved from previous echocardiogram. Continue aspirin, Lipitor and beta rahat. Continue lisinopril and beta rahat for decreased EF. Continue above medication for blood pressure control. Monitor vitals and adjust medications if necessary. [Patient admitted for cellulitis of the left lower extremity. He is on IV antibiotics. Blood cultures positive. ID on board. He is pending clinical improvement. Likely DC in 2-3 days.]
[2019-09-07] MEDS: CLINDAMYCIN 900 MG in DEXTROSE 5% IN WATER 50 ML IVPB SCH ×2 (16:40)
--- NOTE | 2019-09-07 18:19 | XR ---
EXAMINATION TYPE: XR chest 1V portable DATE OF EXAM: 09/07/2019 COMPARISON: Prior chest x-ray 04/06/2017 HISTORY: Shortness of breath, cough TECHNIQUE: Single frontal view of the chest is obtained. FINDINGS: Patient is post median sternotomy. Cardiac mediastinal silhouette, pulmonary vascularity a nd karla are stable. There is no evident airspace disease, pneumothorax, or pleural effusion. IMPRESSION: No acute process is evident, follow-up as indicated.
[2019-09-07] MEDS: ATORVASTATIN 40 MG TAB PO SCH (20:37)
[2019-09-07] MEDS: ZOLPIDEM 10 MG TAB PO SCH (20:38)
--- NOTE | 2019-09-07 23:38 | PN ---
PROGRESS NOTE DATE OF SERVICE: 09/07/2019 REASON FOR FOLLOWUP: Left lower extremity cellulitis. INTERVAL HISTORY: The patient did spike a fever this morning of 102.1 degrees Fahrenheit. The patient is still complaining of pain and swelling to the left leg and no significant improvement. The patient denies having any chest pain or shortness of breath or cough. No abdominal pain or diarrhea. PHYSICAL EXAMINATION: Blood pressure 128/67 with a pulse of 76, temperature 99.5. He is 95% on room air. General description is an elderly male, lying in bed, in no distress. RESPIRATORY SYSTEM: Unlabored breathing, clear to auscultation anteriorly. HEART: S1, S2. Regular rate and rhythm. ABDOMEN: Soft, no tenderness. Left leg has significant swelling and redness and warm to touch. LABS: White count elevated at 13,000. DIAGNOSTIC IMPRESSION AND PLAN: Patient with extensive left lower extremity cellulitis with group bacteremia. We will add clindamycin to cefazolin. If persistent fever and elevated white count, will need a CT of the leg to make sure no evidence of any abscess that may need to be drained and we will monitor his clinical course closely. MMODL / IJN: [id number] /
[2019-09-08] MEDS: CLINDAMYCIN 900 MG in DEXTROSE 5% IN WATER 50 ML IVPB SCH ×6 (00:15→16:47)
[2019-09-08] MEDS: HEPARIN SODIUM,PORCINE 5,000 UNIT/ML 1 ML VIAL SQ SCH ×3 (00:17→16:47)
[2019-09-08] MEDS: ASPIRIN 81 MG PO SCH (07:57)
[2019-09-08] MEDS: METOPROLOL TARTRATE 25 MG TAB PO SCH ×2 (07:57→20:34)
[2019-09-08] MEDS: ACETAMINOPHEN TAB 325 MG TAB PO PRN (07:58)
[2019-09-08 08:17] LABS: ALT 24 U/L (4-49); AST 40 U/L (17-59); African American GFR (CKD) >90 (>60 ml/min/1.73 sqM); Albumin 2.9 g/dL (3.5-5.0); Alkaline Phosphatase 72 U/L (38-126); Anion Gap 8 mmol/L; Blood Urea Nitrogen 12 mg/dL (9-20); Calcium 7.8 mg/dL (8.4-10.2); Carbon Dioxide 24 mmol/L (22-30); Chloride 104 mmol/L (98-107); Glucose 92 mg/dL (74-99); Non-African American GFR(CKD) >90 (>60 ml/min/1.73 sqM); Potassium 4.4 mmol/L (3.5-5.1); Sodium 136 mmol/L (137-145); Total Bilirubin 1.2 mg/dL (0.2-1.3); Total Protein 5.6 g/dL (6.3-8.2)
[2019-09-08 08:54] LABS: Basophils % (A) 0 %; Eosinophils % (A) 0 %; HCT 37.2 % (39.0-53.0); HGB 12.3 gm/dL (13.0-17.5); Lymphocytes # (A) 0.7 k/uL (1.0-4.8); Lymphocytes % (A) 7 %; MCH 32.7 pg (25.0-35.0); MCHC 33.2 g/dL (31.0-37.0); MCV 98.6 fL (80.0-100.0); Mean Platelet Volume 8.9; Monocytes % (A) 10 %; Neutrophils # (A) 7.8 k/uL (1.3-7.7); Neutrophils % (A) 80 %; Platelet Count 157 k/uL (150-450); RBC 3.77 m/uL (4.30-5.90); WBC 9.8 k/uL (3.8-10.6)
[2019-09-08] MEDS ORDERED: SODIUM CHLORIDE 0.9% 1,000 ML IV ONE (13:55)
--- NOTE | 2019-09-08 14:23 | PN ---
PROGRESS NOTE Mr. Weinstein is well known to me from the past. Patient had aortic stent graft done and right carotid endarterectomy done in the past by me. The patient has been coming to the office for followup. The patient came with cellulitis of the left lower extremity involving the lower leg and upper thigh area. No history of trauma or insect bite. The patient had a CTA of the abdomen which shows some atherosclerosis disease of the SFA, which is chronic in nature. The aortic stent graft is patent. The patient started on IV antibiotic and under care for Infectious Disease and also we have been using his Silvadene cream. Today we have checked the leg. His cellulitis is much improving. No calf tenderness noted. Dorsal pedis is present. We will continue that. I have discussed with Dr. Beaulieu that if the patient wants to go home, I can follow up with him in the office in the next week. Thank you very much. [id number] / JUDYN: [id number] /
--- NOTE | 2019-09-08 14:26 | P.PN ---
Subjective Progress Note Date: 09/08/19 Principal diagnosis: Cellulitis Patient was seen and examined. No acute events overnight. Patient reports slight improvement in the erythema of his left lower extremity. He complains of swelling that is not improved left greater than right. States that zolpidem helped him go to sleep last night. He denies any chest pain, shortness of breath or palpitations. No nausea or vomiting. No fever or chills. Nursing reports heart rate to be 130. Objective - Vital Signs Vital signs: Vital Signs Temp 98.1 F 09/08/19 10:05 Pulse 101 H 09/08/19 10:06 Resp 20 09/08/19 10:06 BP 115/77 09/08/19 10:05 Pulse Ox 98 09/08/19 10:05 Intake & Output 09/07/19 09/08/19 09/08/19 18:59 06:59 18:59 Intake Total 950 1550 360 Output Total 1000 500 Balance -50 1050 360 Intake: Intake, IV Titration 650 1150 Amount Clindamycin 900 mg In 50 Dextrose 5% in Water 50 ml @ 50 mls/hr IVPB Q8HR [facility] Rx#:[id number] Sodium Chloride 0.9% 1, 600 1050 000 ml @ 75 mls/hr IV . [id number] [facility] Rx#:[id number] ceFAZolin 2 gm In Sodium 50 50 Chloride 0.9% 50 ml @ 100 mls/hr IVPB Q8HR [facility] Rx# :[id number] Oral 300 400 360 Output: Urine 1000 500 Other: Voiding Method Toilet Toilet Toilet # Voids 3 1 1 # Bowel Movements 1 - Exam General: [non toxic], [no distress], [appears at stated age] Derm: [warm], [dry] Head: [atraumatic], [normocephalic], [symmetric] Eyes: [EOMI], [no lid lag], [anicteric sclera] Mouth: [no lip lesion], [mucus membranes moist] Cardiovascular: [S1S2 reg], [tachycardic], [positive DP pulse bilateral], Lungs: [CTA bilateral], [no rhonchi, no rales] , [no accessory muscle use] Abdominal: [soft], [ nontender to palpation], [no guarding], [no appreciable organomegaly] Ext: [no gross muscle atrophy], [no edema], [no contractures], [extensive erythema left lower extremities medial calf outlined, warm to touch, wrapped dressing clean dry and intact] Neuro: [no focal neuro deficits] Psych: [Alert], [oriented], [appropriate affect] - Labs CBC & Chem 7: 09/08/19 07:43 09/08/19 07:43 Labs: Abnormal Lab Results - Last 24 Hours (Table) 09/08/19 09/08/19 Range/Units 07:43 07:43 RBC 3.77 L (4.30-5.90) m/uL Hgb 12.3 L (13.0-17.5) gm/dL Hct 37.2 L (39.0-53.0) % Neutrophils # 7.8 H (1.3-7.7) k/uL Lymphocytes # 0.7 L (1.0-4.8) k/uL Sodium 136 L (137-145) mmol/L Calcium 7.8 L (8.4-10.2) mg/dL Total Protein 5.6 L (6.3-8.2) g/dL Albumin 2.9 L (3.5-5.0) g/dL Microbiology - Last 24 Hours (Table) 09/07/19 07:04 Blood Culture - Preliminary Blood No Growth after 24 hours 09/05/19 20:26 Blood Culture Gram Stain - Final Blood Blood Culture - Final Beta Hemolytic Strep Group G Assessment and Plan Assessment: Tachycardia Sepsis related to cellulitis with bacteremia 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 Discussed with nursing, bolus 1 L normal saline, obtain EKG, start telemetry monitoring. Patient initially met sepsis criteria with fever, leukocytosis and positive source of infection. His cellulitis has not improved much since admission. Blood cultures are positive for beta-hemolytic strep group G. Infectious diseases consulted. Patient is currently on cefazolin IV and clindamycin has been added. Repeat blood cultures are ordered and prelim negative. Tylenol as needed for fever. Continue IV hydration at 75 mL per hour. Vascular surgery as evaluated the patient and recommends no further inpatient workup. Patient noted to have moderate blood with 12 RBCs on urinalysis. He will need to see urology in the outpatient setting. Echocardiogram shows EF 45-50% with hypokinetic wall motion improved from previous echocardiogram. Continue aspirin, Lipitor and beta rahat. Continue lisinopril and beta rahat for decreased EF. Cautious use of fluids given low normal EF Continue above medication for blood pressure control. Monitor vitals and adjust medications if necessary. [Patient admitted for cellulitis of the left lower extremity. He is on IV antibiotics. Blood cultures positive. ID on board. He is pending clinical improvement. Likely DC in 2-3 days.]
--- NOTE | 2019-09-08 17:05 | PN ---
PROGRESS NOTE DATE OF SERVICE: 09/08/2019 REASON FOR FOLLOWUP: Left lower extremity cellulitis with beta-hemolytic group G strep bacteremia. INTERVAL HISTORY: The patient is currently afebrile. The patient is breathing comfortably. The patient denies having any chest pain or shortness of breath or cough. No nausea, no vomiting. No abdominal pain or any worsening pain to the left leg area. PHYSICAL EXAMINATION: Blood pressure is 102/71, pulse of 134, temperature of 97.7. He is 96% on room air. General description is an elderly male lying in bed in no distress. RESPIRATORY SYSTEM: Unlabored breathing. Clear to auscultation anteriorly. HEART: S1, S2. Regular rate and rhythm. ABDOMEN: Soft. No tenderness. Left leg is currently wrapped up. Surgeon just reviewed the leg and mentioned that overall redness has improved. LABS: Hemoglobin is 12.3, white count 9.8. BUN of , creatinine 0.86. Blood culture repeat 09/06 has been negative. DIAGNOSTIC IMPRESSION AND PLAN: Patient with acute left lower extremity cellulitis with streptococcal bacteremia. Patient to continue Cefazolin and clindamycin for another 24 hours. Will reevaluate the leg tomorrow with a plan for either oral or IV antibiotic on discharge. Continue with supportive care. MMODL / IJN: [id number] /
[2019-09-08] MEDS ORDERED: METOPROLOL TARTRATE 50 MG TAB PO STA (17:31)
[2019-09-08] MEDS ORDERED: HEPARIN SODIUM,PORCINE 5,000 UNIT/ML 1 ML VIAL IV ONE (17:33)
[2019-09-08] MEDS: HEPARIN SOD,PORK IN 0.45% NACL 25,000 UNIT in 0.45% NACL 1 250ML.BAG IV SCH (18:14)
[2019-09-08] MEDS ORDERED: DILTIAZEM DRIP BOLUS FROM BAG 1 MG SOLN IV ONE ×2 (18:23→23:58)
[2019-09-08] MEDS ORDERED: DILTIAZEM 125 MG in SODIUM CHLORIDE 0.9% 100 ML IV SCH (18:30)
[2019-09-08 18:49] LABS: HCT 36.4 % (39.0-53.0); HGB 12.1 gm/dL (13.0-17.5); MCH 32.7 pg (25.0-35.0); MCHC 33.3 g/dL (31.0-37.0); MCV 98.2 fL (80.0-100.0); Mean Platelet Volume 8.2; Platelet Count 160 k/uL (150-450); WBC 7.8 k/uL (3.8-10.6)
[2019-09-08 18:55] LABS: Prothrombin Time 10.2 sec (9.0-12.0)
[2019-09-08 19:25] LABS: Band Neutrophils % 9 %; Lymphocytes # (M) 1.48 k/uL (1.0-4.8); Monocytes # (M) 0.55 k/uL (0-1.0); Neutrophils % (M) 65 %; Nucleated Red Blood Cells 0 /100 WBC (0-0); Total Cells Counted 100
[2019-09-08] MEDS: ATORVASTATIN 40 MG TAB PO SCH (20:34)
[2019-09-08] MEDS: ZOLPIDEM 10 MG TAB PO SCH (21:40)
[2019-09-09] MEDS ORDERED: DILTIAZEM DRIP BOLUS FROM BAG 1 MG SOLN IV ONE (00:42)
[2019-09-09] MEDS: CLINDAMYCIN 900 MG in DEXTROSE 5% IN WATER 50 ML IVPB SCH ×8 (01:18→23:23)
[2019-09-09] MEDS ORDERED: DEXTROSE 5% IN WATER 100 ML with AMIODARONE 150 MG IV ONE ×2 (01:55→08:56)
[2019-09-09] MEDS ORDERED: AMIODARONE 360 MG in DEXTROSE 5% IN WATER 200 ML IV ONE ×6 (01:55→14:37)
[2019-09-09] MEDS ORDERED: methylPREDNISolone SOD SUCCI 125 MG/2 ML VIAL IV STA (02:51)
[2019-09-09] MEDS ORDERED: diphenhydrAMINE 50 MG/ML 1 ML VIAL IVP STA (02:52)
[2019-09-09] MEDS ORDERED: IPRATROPIUM-ALBUTEROL 3 ML NEB INHALATION STA (02:55)
[2019-09-09] MEDS ORDERED: EPINEPHrine 1 MG/ML 1 ML AMP IM STA ×2 (02:56→03:08)
[2019-09-09] MEDS: SODIUM CHLORIDE 0.9% 1,000 ML IV SCH ×2 (04:00→16:14)
[2019-09-09] MEDS ORDERED: IPRATROPIUM-ALBUTEROL 3 ML NEB ONE (04:06)
[2019-09-09] MEDS: METOPROLOL TARTRATE 25 MG TAB PO SCH ×2 (06:41→21:00)
--- NOTE | 2019-09-09 07:33 | P.PN ---
Progress Note - Text 64-year-old gentleman, patient is well known to me patient had a aortic stent graft and his been coming to the office for regular follow-up. Patient has developed cellulitis of the left lower extremity with positive blood culture patient is on on IV antibiotics by infectious disease femoral pulses palpable dorsal pedis palpable CTA showed some atherosclerosis disease of the SFA. Left foot cellulitis is improving we'll continue with IV antibiotic and Silvadene cream with compression wrap with leg elevation when is patient discharged we will follow in the office
[2019-09-09] MEDS ORDERED: AMIODARONE 300 MG in DEXTROSE 5% IN WATER 250 ML IV SCH ×4 (07:55→14:57)
--- NOTE | 2019-09-09 08:03 | XR ---
EXAMINATION TYPE: XR chest 1V portable DATE OF EXAM: 09/09/2019 HISTORY: sob. REFERENCE: Previous study dated 09/07/2019. FINDINGS: There has been a midline sternotomy. The heart is enlarged. There is vascular congestion and subtle interstitial change. There are small, bilateral effusions. IMPRESSION: CONTINUING CHANGES OF CONGESTIVE HEART FAILURE.
[2019-09-09 08:34] LABS: Basophils % (A) 0 %; Eosinophils # (A) 0.1 k/uL (0-0.7); Eosinophils % (A) 1 %; HCT 36.2 % (39.0-53.0); HGB 11.8 gm/dL (13.0-17.5); Lymphocytes # (A) 0.4 k/uL (1.0-4.8); Lymphocytes % (A) 5 %; MCH 31.7 pg (25.0-35.0); MCHC 32.7 g/dL (31.0-37.0); MCV 96.9 fL (80.0-100.0); Mean Platelet Volume 8.2; Monocytes # (A) 0.3 k/uL (0-1.0); Monocytes % (A) 4 %; Neutrophils # (A) 6.6 k/uL (1.3-7.7); Neutrophils % (A) 90 %; Platelet Count 164 k/uL (150-450); RBC 3.74 m/uL (4.30-5.90); RDW 14.2 % (11.5-15.5); WBC 7.4 k/uL (3.8-10.6)
[2019-09-09 08:52] LABS: ALT 37 U/L (4-49); AST 55 U/L (17-59); African American GFR (CKD) >90 (>60 ml/min/1.73 sqM); Alkaline Phosphatase 87 U/L (38-126); Anion Gap 11 mmol/L; Blood Urea Nitrogen 16 mg/dL (9-20); Calcium 7.7 mg/dL (8.4-10.2); Carbon Dioxide 20 mmol/L (22-30); Chloride 106 mmol/L (98-107); Glucose 132 mg/dL (74-99); Non-African American GFR(CKD) >90 (>60 ml/min/1.73 sqM); Potassium 3.9 mmol/L (3.5-5.1); Sodium 137 mmol/L (137-145); Total Bilirubin 0.8 mg/dL (0.2-1.3); Total Protein 5.9 g/dL (6.3-8.2)
[2019-09-09] MEDS ORDERED: FUROSEMIDE 10 MG/ML 4 ML VIAL IV SCH (09:00)
[2019-09-09 09:51] LABS: African American GFR (CKD) >90 (>60 ml/min/1.73 sqM); Anion Gap 10 mmol/L; Blood Urea Nitrogen 16 mg/dL (9-20); Calcium 7.8 mg/dL (8.4-10.2); Carbon Dioxide 19 mmol/L (22-30); Chloride 106 mmol/L (98-107); Glucose 133 mg/dL (74-99); Magnesium 2.2 mg/dL (1.6-2.3); Non-African American GFR(CKD) >90 (>60 ml/min/1.73 sqM); Potassium 3.9 mmol/L (3.5-5.1); Sodium 135 mmol/L (137-145)
[2019-09-09] MEDS: HEPARIN SOD,PORK IN 0.45% NACL 25,000 UNIT in 0.45% NACL 1 250ML.BAG IV SCH (10:03)
[2019-09-09] MEDS: ASPIRIN 81 MG PO SCH (10:08)
[2019-09-09] MEDS: HEPARIN SODIUM,PORCINE 5,000 UNIT/ML 1 ML VIAL IV PRN (10:08)
[2019-09-09] MEDS: FUROSEMIDE 10 MG/ML 4 ML VIAL IV SCH ×3 (10:33→23:23)
--- NOTE | 2019-09-09 13:39 | P.PN ---
Subjective Progress Note Date: 09/09/19 Principal diagnosis: Cellulitis Patient was seen and examined. No acute events overnight. Patient reports slight improvement in the erythema of his left lower extremity. He complains of swelling that is not improved left greater than right. He denies any chest pain, shortness of breath or palpitations. No nausea or vomiting. No fever or chills. Overnight, patient was found to be tachycardic. EKG confirmed atrial flutter. He was initially started on metoprolol and switched to Cardizem drip. Overnight, he received amiodarone for uncontrolled heart rate. Patient de veloped stridor requiring epinephrine, Solu-Medrol and Benadryl. Objective - Vital Signs Vital signs: Vital Signs Temp 98.0 F 09/09/19 11:59 Pulse 140 H 09/09/19 13:02 Resp 13 09/09/19 13:02 BP 133/84 09/09/19 13:02 Pulse Ox 91 L 09/09/19 13:02 Intake & Output 09/08/19 09/09/19 09/09/19 18:59 06:59 18:59 Intake Total 560 480 738.834 Output Total 200 Balance 560 280 738.834 Weight 94 kg Intake: IV 40 Invasive Line 2 20 Invasive Line 3 20 Intake, IV Titration 158.834 Amount Heparin Sod,Pork in 0.45% 158.834 NaCl 25,000 unit In 0.45 % NaCl 1 250ml.bag @ 11. 603 UNITS/KG/HR 10 mls/hr IV .Q24H [facility] Rx#: [id number] Oral 560 480 540 Output: Urine 200 Other: Voiding Method Toilet Toilet Toilet # Voids 2 1 # Bowel Movements 1 - Exam General: [non toxic], [no distress], [appears at stated age] Derm: [warm], [dry] Head: [atraumatic], [normocephalic], [symmetric] Eyes: [EOMI], [no lid lag], [anicteric sclera] Mouth: [no lip lesion], [mucus membranes moist] Cardiovascular: [S1S2 reg], [tachycardic], [positive DP pulse bilateral], Lungs: [Rales at the bases bilaterally], [no rhonchi, no rales] , [no accessory muscle use], no stridor Abdominal: [soft], [ nontender to palpation], [no guarding], [no appreciable organomegaly] Ext: [no gross muscle atrophy], [no edema], [no contractures], [extensive erythema left lower extremities medial calf outlined, warm to touch, wrapped dressing clean dry and intact] Neuro: [no focal neuro deficits] Psych: [Alert], [oriented], [appropriate affect] - Labs CBC & Chem 7: 09/09/19 08:05 09/09/19 08:05 Labs: Abnormal Lab Results - Last 24 Hours (Table) 09/08/19 09/08/19 09/08/19 Range/Units 17:59 17:59 23:51 RBC 3.70 L (4.30-5.90) m/uL Hgb 12.1 L (13.0-17.5) gm/dL Hct 36.4 L (39.0-53.0) % Lymphocytes # (1.0-4.8) k/uL APTT 31.0 H 47.4 H (22.0-30.0) sec Sodium (137-145) mmol/L Carbon Dioxide (22-30) mmol/L Glucose (74-99) mg/dL Calcium (8.4-10.2) mg/dL Total Protein (6.3-8.2) g/dL Albumin (3.5-5.0) g/dL 09/09/19 09/09/19 09/09/19 Range/Units 08:05 08:05 08:05 RBC 3.74 L (4.30-5.90) m/uL Hgb 11.8 L (13.0-17.5) gm/dL Hct 36.2 L (39.0-53.0) % Lymphocytes # 0.4 L (1.0-4.8) k/uL APTT 41.2 H (22.0-30.0) sec Sodium (137-145) mmol/L Carbon Dioxide 20 L (22-30) mmol/L Glucose 132 H (74-99) mg/dL Calcium 7.7 L (8.4-10.2) mg/dL Total Protein 5.9 L (6.3-8.2) g/dL Albumin 3.0 L (3.5-5.0) g/dL 09/09/19 Range/Units 08:05 RBC (4.30-5.90) m/uL Hgb (13.0-17.5) gm/dL Hct (39.0-53.0) % Lymphocytes # (1.0-4.8) k/uL APTT (22.0-30.0) sec Sodium 135 L (137-145) mmol/L Carbon Dioxide 19 L (22-30) mmol/L Glucose 133 H (74-99) mg/dL Calcium 7.8 L (8.4-10.2) mg/dL Total Protein (6.3-8.2) g/dL Albumin (3.5-5.0) g/dL Microbiology - Last 24 Hours (Table) 09/07/19 07:04 Blood Culture - Preliminary Blood No Growth after 48 hours Assessment and Plan Assessment: Acute hypoxic respiratory failure likely from combination of systolic CHF and atrial flutter Atrial flutter ALLERGIC reaction Sepsis related to cellulitis with bacteremia Severe stenosis of the left femoral artery Hematuria CAD post CABG Hypertension Resolved: Acute kidney injury Chest x-ray showing signs of CHF. Patient will be started on Lasix 40 mg IV 3 times a day. Continue metoprolol and lisinopril. Strict intake and output. Daily weights. Repeat chest x-ray tomorrow morning. Cardiology on board. EKG showing atrial flutter. Telemetry monitoring. Per cardiology recommendations, start amiodarone drip at lower rate. Continue metoprolol by mouth. Started on heparin drip by cardiology for anticoagulation. Keep potassium greater than 4 and magnesium greater than 2. Possibly related to amiodarone. Now resolved. Plans to monitor the patient carefully while he is on amiodarone. Patient initially met sepsis criteria with fever, leukocytosis and positive source of infection. His cellulitis slowly improving since admission. Blood cultures are positive for beta-hemolytic strep group G. Infectious diseases consulted. Patient is currently on cefazolin IV and clindamycin has been added. Repeat blood cultures are ordered and prelim negative. Tylenol as needed for fever. Vascular surgery as evaluated the patient and recommends no further inpatient workup. Patient noted to have moderate blood with 12 RBCs on urinalysis. He will need to see urology in the outpatient setting. Echocardiogram shows EF 45-50% with hypokinetic wall motion improved from previous echocardiogram. Continue aspirin, Lipitor and beta rahat. Continue above medication for blood pressure control. Monitor vitals and adjust medications if necessary. [Patient admitted for cellulitis of the left lower extremity. He is on IV antibiotics. Blood cultures positive. ID on board. Found to be in A. fib, cardiology consulted, currently on amiodarone drip. He is pending clinical improvement. Likely DC in 2-3 days.]
--- NOTE | 2019-09-09 15:12 | CONS ---
CONSULTATION This is a 64-year-old gentleman with a known history of CAD, prior bypass surgery, mitral valve repair and tricuspid valve repair. This gentleman was admitted to the hospital with cellulitis, was placed on antibiotics, was being seen by Dr. Beaulieu. Apparently he went into atrial flutter/fibrillation syndrome and developed a very rapid heart rate and was transferred to the 4th floor. I am seeing him in regard to atrial flutter with a rapid ventricular rate. He was given by metoprolol tartrate, transferred to the telemetry unit on a Cardizem drip. The patient was started on amiodarone by Dr. Alicea in the night but developed some episodes of shortness of breath and therefore his amiodarone drip was stopped. This morning he is more comfortable. He is in atrial flutter, rate is about 130-140 per minute. Patient is well known to me as an ischemic heart disease, prior bypass surgery with repair of mitral and tricuspid valve performed in the setting of a cardiogenic shock with excellent result. He has ejection fraction in the 40% range, reasonably decent functional capacity and was doing fairly well. The patient was actually hospitalized with cellulitis and was being treated with antibiotics and seen by Infectious Disease specialist, Dr. Beaulieu and also by Dr. Dumont. MEDICATIONS: At home include Lipitor, lisinopril, aspirin, metoprolol and he also takes some inhalers. ALLERGIES: No known drug allergies. EXAMINATION: On examination blood pressure is 100/60, pulse rate is about 130 per minute. HEENT: Unremarkable. Fundus was not examined by me. NECK: Supple. There is JVD 1 cm. No carotid bruit. Heart exam reveals S1, S2 with tachycardia. Lungs reveal diminished air entry. Abdomen is soft. Lower extremities reveal diminished pulses. His left leg is bandaged with cellulitis. IMPRESSION: 1. Paroxysmal atrial flutter. 2. History of coronary artery disease with ejection fraction of 40% range with previous bypass surgery. 3. History of cellulitis of lower extremities. 4. Possible peripheral artery disease. RECOMMENDATIONS: I am recommending that we continue the same medications. Patient also has a history of prior abdominal aortic aneurysm status post stent grafting as well. We will continue current medical regimen but I will resume amiodarone bolus and drip and we will give the amiodarone somewhat slowly, the bolus, and give him the drip and see how he does. If he does not convert I will consider electrical cardioversion. Patient is currently on intravenous heparin for anticoagulation. We will therefore try amiodarone and anticoagulation and see how he does. He is already on beta blockers as well. Discussed my thoughts in detail with the patient. Prognosis remains guarded. MMODL / IJN: [id number] /
[2019-09-09 15:41] LABS: Glucose,Whole Blood 143 mg/dL (75-99)
[2019-09-09 17:47] LABS: African American GFR (CKD) >90 (>60 ml/min/1.73 sqM); Anion Gap 9 mmol/L; Blood Urea Nitrogen 19 mg/dL (9-20); Calcium 8.3 mg/dL (8.4-10.2); Carbon Dioxide 23 mmol/L (22-30); Chloride 107 mmol/L (98-107); Glucose 151 mg/dL (74-99); Magnesium 2.5 mg/dL (1.6-2.3); Non-African American GFR(CKD) 81 (>60 ml/min/1.73 sqM); Potassium 4.4 mmol/L (3.5-5.1); Sodium 139 mmol/L (137-145)
[2019-09-09] MEDS: AMIODARONE 300 MG in DEXTROSE 5% IN WATER 250 ML IV SCH ×2 (20:37)
[2019-09-09] MEDS: ATORVASTATIN 40 MG TAB PO SCH (20:58)
[2019-09-09] MEDS: ZOLPIDEM 10 MG TAB PO SCH (21:39)
[2019-09-09] MEDS: SILVER sulfADIAZINE Cream 400 GM 1 APPLIC APPLIC TOPICAL SCH (21:42)
[2019-09-10] MEDS: AMIODARONE 300 MG in DEXTROSE 5% IN WATER 250 ML IV SCH ×2 (06:19)
[2019-09-10] MEDS: HEPARIN SOD,PORK IN 0.45% NACL 25,000 UNIT in 0.45% NACL 1 250ML.BAG IV SCH (06:20)
--- NOTE | 2019-09-10 06:26 | PN ---
PROGRESS NOTE DATE OF SERVICE: 09/09/2019 REASON FOR FOLLOW UP: Left lower extremity cellulitis with streptococcal bacteremia. INTERVAL HISTORY: Patient is currently afebrile. The patient is breathing comfortably. Patient transferred down to the heart floor because of atrial fibrillation/flutter. Denies any chest pain or shortness of breath or cough. No pain to the left leg. PHYSICAL EXAMINATION: Blood pressure 149/100 with a pulse of 139, temperature 97.7. He is 96% on room air. General description is a elderly male lying in bed in no distress. Respiratory system: Unlabored breathing, clear to auscultation anteriorly. Heart S1, S2. Regular rate and rhythm. Abdomen soft, no tenderness. Left leg is currently dressed up. No obvious drainage on the dressing. LABS: BUN of 19, creatinine 0.98, white count 7.4. Blood culture repeat on September 06 has been negative. DIAGNOSTIC IMPRESSION AND PLAN: Patient with acute left lower extremity cellulitis with streptococcal bacteremia. The patient is covered with cefazolin and clindamycin to continue while inpatient. Hopefully finish therapy with oral antibiotics. Continue Aroldo wrap to the leg to keep the swelling down. MMODL / IJN: [id number] /
[2019-09-10] MEDS: ASPIRIN 81 MG PO SCH (07:45)
[2019-09-10] MEDS: METOPROLOL TARTRATE 25 MG TAB PO SCH ×2 (07:45→22:28)
[2019-09-10 08:03] LABS: Basophils % (A) 0 %; Eosinophils % (A) 0 %; HCT 38.1 % (39.0-53.0); HGB 11.9 gm/dL (13.0-17.5); Lymphocytes # (A) 1.1 k/uL (1.0-4.8); Lymphocytes % (A) 9 %; MCH 30.3 pg (25.0-35.0); MCHC 31.2 g/dL (31.0-37.0); Mean Platelet Volume 8.2; Monocytes # (A) 1.1 k/uL (0-1.0); Monocytes % (A) 9 %; Neutrophils # (A) 9.4 k/uL (1.3-7.7); Neutrophils % (A) 78 %; Platelet Count 242 k/uL (150-450); RBC 3.93 m/uL (4.30-5.90); RDW 14.3 % (11.5-15.5)
[2019-09-10 08:22] LABS: Magnesium 2.3 mg/dL (1.6-2.3); Potassium 3.8 mmol/L (3.5-5.1)
[2019-09-10] MEDS: CLINDAMYCIN 900 MG in DEXTROSE 5% IN WATER 50 ML IVPB SCH ×6 (08:27→23:46)
[2019-09-10] MEDS: FUROSEMIDE 10 MG/ML 4 ML VIAL IV SCH ×4 (08:27→22:30)
[2019-09-10] MEDS: HEPARIN SODIUM,PORCINE 5,000 UNIT/ML 1 ML VIAL IV PRN (09:31)
[2019-09-10] MEDS ORDERED: PROPOFOL 10 MG/ML 20 ML VIAL IV ONE (10:47)
[2019-09-10] MEDS ORDERED: NOREPINEPHRINE 4 MG in SODIUM CHLORIDE 0.9% 250 ML IV ONE (11:36)
[2019-09-10] MEDS ORDERED: METOPROLOL TARTRATE 50 MG TAB PO SCH (11:58)
--- NOTE | 2019-09-10 12:44 | PCN ---
PROCEDURE NOTE DATE OF SERVICE: 09/10/2019 PROCEDURE: Electrical cardioversion. INDICATION: Persistent atrial flutter with symptoms of shortness of breath and hypotension. CLINICAL INFORMATION: Mr. Kalyan Weinstein is a 64-year-old gentleman with ischemic cardiomyopathy, hypertension, hyperlipidemia, who also has significant cellulitis of lower extremities and has been on antibiotics. While in the hospital, he went into atrial flutter rapid rate, did not respond to beta blockers or amiodarone. Was advised electrical cardioversion. He has been on heparin for at least 48 hours. Risks, benefits, options, rationale were explained. PROCEDURE NOTE: Under the influence of ultra short intravenous anesthetic agent with the attendance of the anesthesiologist Dr. Quevedo, a single 50 joule shock was delivered to the chest wall with anterior and posterior patches. Patient converted to sinus rhythm and remained hemodynamically stable. This was successful electrical cardioversion. He was sent to the room in a stable condition. MMODL / IJN: [id number] /
[2019-09-10] MEDS: AMIODARONE 200 MG TAB PO SCH ×2 (13:18→22:28)
[2019-09-10] MEDS: APIXABAN 5 MG TAB PO SCH ×2 (13:18→22:28)
[2019-09-10] MEDS: SODIUM CHLORIDE 0.9% 1,000 ML IV SCH (13:19)
--- NOTE | 2019-09-10 13:44 | PN ---
PROGRESS NOTE This gentleman has a history of ischemic heart disease, previous bypass surgery, repair of mitral and tricuspid valve. Has developed atrial flutter that is persistent. I am doing cardioversion today. Vital signs stable. Patient understands the rationale of the procedure. His blood pressure is somewhat low, but this could be related to the atrial flutter with 2:1 block. Plan is to continue current medications. Hold his amiodarone before the procedure. Following the electrical cardioversion, he will need to be on anticoagulation, Eliquis 5 mg b.i.d., amiodarone 200 mg b.i.d., and metoprolol. Aspirin can be discontinued. Discussed my thoughts in detail with the patient. He understands all the rationale, risks, benefits, options, wishes to proceed and will perform electrical cardioversion today. MMODL / IJN: [id number] /
--- NOTE | 2019-09-10 14:19 | P.PN ---
Subjective Progress Note Date: 09/10/19 Principal diagnosis: Cellulitis Patient was seen and examined. No acute events overnight. Patient reports slight improvement in the erythema of his left lower extremity. Swelling has greatly improved in his left lower extremity over the last couple of days. He was taken for cardioversion this morning and correct to sinus rhythm maintaining heart rate in the 50s currently. Patient states that he feels much better after cardioversion. He denies any chest pain, shortness breath or palpitations. No nausea or vomiting. No fever or chills. Objective - Vital Signs Vital signs: Vital Signs Temp 97.8 F 09/10/19 08:22 Pulse 58 L 09/10/19 11:30 Resp 18 09/10/19 11:30 BP 114/68 09/10/19 11:30 Pulse Ox 94 L 09/10/19 11:30 Intake & Output 09/09/19 09/10/19 09/10/19 18:59 06:59 18:59 Intake Total 878.834 479.5 61.295 Output Total 1200 Balance -321.166 479.5 61.295 Weight 92.1 kg Intake: IV 60 23 Invasive Line 2 30 Invasive Line 3 30 Intake, IV Titration 158.834 479.5 38.295 Amount Amiodarone 300 mg In 242.5 Dextrose 5% in Water 250 ml @ 0.5 MG/MIN 25 mls/hr IV .Q10H [facility] Rx#: [id number] Heparin Sod,Pork in 0.45% 158.834 237 38.295 NaCl 25,000 unit In 0.45 % NaCl 1 250ml.bag @ 11. 603 UNITS/KG/HR 10 mls/hr IV .Q24H [facility] Rx#: [id number] Oral 660 Output: Urine 1200 Other: Voiding Method Toilet Toilet Toilet # Voids 1 1 - Exam General: [non toxic], [no distress], [appears at stated age] Derm: [warm], [dry] Head: [atraumatic], [normocephalic], [symmetric] Eyes: [EOMI], [no lid lag], [anicteric sclera] Mouth: [no lip lesion], [mucus membranes moist] Cardiovascular: [S1S2 reg], [no murmur], [positive DP pulse bilateral], Lungs: [Clear to auscultation bilaterally], [no rhonchi, no rales] , [no accessory muscle use], no stridor Abdominal: [soft], [ nontender to palpation], [no guarding], [no appreciable organomegaly] Ext: [no gross muscle atrophy], [no edema], [no contractures], [extensive erythema left lower extremities medial calf outlined, warm to touch, wrapped dressing clean dry and intact] Neuro: [no focal neuro deficits] Psych: [Alert], [oriented], [appropriate affect] - Labs CBC & Chem 7: 09/10/19 07:09/10/19 07:17 Labs: Abnormal Lab Results - Last 24 Hours (Table) 09/09/19 09/09/19 09/09/19 Range/Units 15:30 16:49 16:49 WBC (3.8-10.6) k/uL RBC (4.30-5.90) m/uL Hgb (13.0-17.5) gm/dL Hct (39.0-53.0) % Neutrophils # (1.3-7.7) k/uL Monocytes # (0-1.0) k/uL APTT 49.5 H (22.0-30.0) sec BUN (9-20) mg/dL Glucose 151 H (74-99) mg/dL POC Glucose (mg/dL) 143 H (75-99) mg/dL Calcium 8.3 L (8.4-10.2) mg/dL Magnesium 2.5 H (1.6-2.3) mg/dL 09/10/19 09/10/19 09/10/19 Range/Units 07:17 07:17 08:33 WBC 12.0 H (3.8-10.6) k/uL RBC 3.93 L (4.30-5.90) m/uL Hgb 11.9 L (13.0-17.5) gm/dL Hct 38.1 L (39.0-53.0) % Neutrophils # 9.4 H (1.3-7.7) k/uL Monocytes # 1.1 H (0-1.0) k/uL APTT 41.6 H (22.0-30.0) sec BUN 25 H (9-20) mg/dL Glucose 115 H (74-99) mg/dL POC Glucose (mg/dL) (75-99) mg/dL Calcium 8.0 L (8.4-10.2) mg/dL Magnesium (1.6-2.3) mg/dL Microbiology - Last 24 Hours (Table) 09/07/19 07:04 Blood Culture - Preliminary Blood No Growth after 72 hours Assessment and Plan Assessment: Acute hypoxic respiratory failure likely from combination of systolic CHF and atrial flutter, resolving Atrial flutter Sepsis related to cellulitis with bacteremia 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 Lasix switched from 40 mg IV 3 times a day to 40 mg by mouth starting tomorrow. Continue metoprolol and lisinopril. Strict intake and output. Daily weights. Cardiology on board. EKG showing atrial flutter, now converted to sinus after cardioversion. Telemetry monitoring. Per cardiology recommendations, start Eliquis for antic oagulation. Continue metoprolol by mouth. Keep potassium greater than 4 and magnesium greater than 2. Patient initially met sepsis criteria with fever, leukocytosis and positive source of infection. His cellulitis improving since admission. Blood cultures are positive for beta-hemolytic strep group G. Infectious diseases consulted. Patient is currently on cefazolin IV and clindamycin has been added. Repeat blood cultures are ordered and prelim negative. Tylenol as needed for fever. Case discussed with Dr. Beaulieu, plans to go home on oral Keflex on discharge. Vascular surgery as evaluated the patient and recommends no further inpatient workup. Patient noted to have moderate blood with 12 RBCs on urinalysis. He will need to see urology in the outpatient setting. Echocardiogram shows EF 45-50% with hypokinetic wall motion improved from previous echocardiogram. Continue aspirin, Lipitor and beta rahat. Continue above medication for blood pressure control. Monitor vitals and adjust medications if necessary. [Patient admitted for cellulitis of the left lower extremity. He is on IV antibiotics. Blood cultures positive. Cardioverted this morning for atrial flutter not responding to beta rahat or amiodarone, cardiology on board. Continue telemetry monitoring. Anticipate DC in 1-2 days if patient is able to maintain sinus rhythm with improvement in his cellulitis.]
[2019-09-10] MEDS: ZOLPIDEM 10 MG TAB PO SCH (22:28)
[2019-09-10] MEDS: ATORVASTATIN 40 MG TAB PO SCH (22:28)
[2019-09-10] MEDS: SILVER sulfADIAZINE Cream 400 GM 1 APPLIC APPLIC TOPICAL SCH (22:35)
--- NOTE | 2019-09-11 00:02 | PN ---
PROGRESS NOTE DATE OF SERVICE: 09/10/2019 REASON FOR FOLLOWUP: Left lower extremity cellulitis with streptococcal bacteremia. INTERVAL HISTORY: The patient is currently afebrile, has been breathing comfortably. The patient denies having any chest pain or shortness of breath or cough. No nausea, no vomiting. No abdominal pain or pain to the left lower extremity. PHYSICAL EXAMINATION: Blood pressure 109/59 with the pulse of 73, temperature 97.4. He is 96% on room air. General description is an elderly male lying in bed in no distress. RESPIRATORY SYSTEM: Unlabored breathing, clear to auscultation anteriorly. HEART: S1, S2. Regular rate and rhythm. ABDOMEN: Soft, no tenderness. Left leg swelling and redness has improved. LABS: White count elevated 12,000 today with a BUN of 25, creatinine 1.03. DIAGNOSTIC IMPRESSION AND PLAN: Patient group G strep bacteremia source is acute left lower extremity cellulitis. Patient is covered with clindamycin and cefazolin. White count slightly elevated, will be repeated tomorrow. Admission white count trending down and is showing a downward trend. To finish therapy with oral Keflex. Discussed with the admitting physician. MMODL / IJN: [id number] /
[2019-09-11 06:28] VITALS: RESP 18
[2019-09-11 06:32] LABS: Basophils % (A) 0 %; Eosinophils # (A) 0.1 k/uL (0-0.7); Eosinophils % (A) 1 %; HCT 34.7 % (39.0-53.0); HGB 11.7 gm/dL (13.0-17.5); Lymphocytes # (A) 1.6 k/uL (1.0-4.8); Lymphocytes % (A) 20 %; MCHC 33.6 g/dL (31.0-37.0); Mean Platelet Volume 7.8; Monocytes # (A) 0.8 k/uL (0-1.0); Monocytes % (A) 10 %; Neutrophils # (A) 5.3 k/uL (1.3-7.7); Neutrophils % (A) 66 %; Platelet Count 224 k/uL (150-450); RBC 3.54 m/uL (4.30-5.90); RDW 14.4 % (11.5-15.5)
[2019-09-11] MEDS ORDERED: FUROSEMIDE 40 MG TAB PO SCH (09:00)
[2019-09-11] MEDS: APIXABAN 5 MG TAB PO SCH (09:19)
[2019-09-11] MEDS: AMIODARONE 200 MG TAB PO SCH (09:19)
[2019-09-11] MEDS: CLINDAMYCIN 900 MG in DEXTROSE 5% IN WATER 50 ML IVPB SCH ×2 (09:20)
[2019-09-11] MEDS: SODIUM CHLORIDE 0.9% 1,000 ML IV SCH (09:20)
[2019-09-11 09:36] LABS: Calcium 7.7 mg/dL (8.4-10.2); Potassium 3.7 mmol/L (3.5-5.1)
--- NOTE | 2019-09-11 10:33 | CDI ---
Documentation Clarification Form Date: 09/11/2019 09:35:39 AM From: Akanksha Ceron RN, CCDS Admit Date: 09/05/2019 10:42:00 PM Patient Name: Kalyan Weinstein Visit Number: [id number] Discharge Date: ATTENTION: The Clinical Documentation Specialists (CDI) and [facility] Coding Staff appreciate your assistance in clarifying documentation. Please respond to the clarification below the line at the bottom and electronically sign. The CDI & [facility] Coding staff will review the response and follow-up if needed. Please note: Queries are made part of the Legal Health Record. If you have any questions, please contact the author of this message via ITS. Dr. Leonela Carreon Atrial Flutter is documented in the consult on 09/08 and subsequent documentation as paroxysmal atrial flutter. 09/09 persistent atrial flutter. In order to accurately capture atrial flutter, please render your opinion on the type. History/Risk factors: Coronary artery disease, Mitral valve repair, tricuspid valve repair Clinical Indicators: 64-year-old male who present on 09/04 with cellulitis. On 09/07 EKG found to be in A-Flutter with 130 heart rate. He went into atrial flutter with rapid rate, did not respond to bata blockers or amiodarone. He was given Metoprolol 50 mg by mouth, Cardizem drip and started on heparin drip. 09/05 ECHO: Moderate concentric left ventricular hypertrophy. Overall left ventricular systolic function is mildly impaired with, an EF between 45-50 %. Treatment: Telemetry Monitoring 09/08 Cardizem drip (dc) 09/07 Heparin drip (DC 09/09) Metoprolol 50 mg po ac brkfast, 25 mg po hs 09/08 Amaradone bolus and drip 09/09 Electrical cardioversion 09/09 Eliquis 5 mg po 09/09 Cardiology progress note: His blood pressure is somewhat low, but this could be related to the atrial flutter with 2:1 block. In your professional opinion, in order to capture the severity of condition; can you please clarify the type of Atrial Flutter if known? Typical/Type I Atypical/Type II Other, please specify Unable to determine (Last Revision: May 2017) Typical/Type I MTDD
--- NOTE | 2019-09-11 11:12 | CDI ---
Documentation Clarification Form Date: 09/11/2019 10:37:20 AM From: Akanksha Ceron RN, CCDS Admit Date: 09/05/2019 10:42:00 PM Patient Name: Kalyan Weinstein Visit Number: [id number] Discharge Date: ATTENTION: The Clinical Documentation Specialists (CDI) and [facility] Coding Staff appreciate your assistance in clarifying documentation. Please respond to the clarification below the line at the bottom and electronically sign. The CDI & [facility] Coding staff will review the response and follow-up if needed. Please note: Queries are made part of the Legal Health Record. If you have any questions, please contact the author of this message via ITS. Dr. Mary Beth Gordillo 09/09 Systolic CHF is documented in the progress note with treatment. Please render your opinion on the acquity of CHF. History/Risk Factors : Coronary artery disease, Mitral valve repair, tricuspid valve repair Clinical Indicators: 64-year-old male who present on 09/04 with cellulitis. On 09/07 EKG found to be in A-Flutter with 130. He went into atrial flutter with rapid rate, did not respond to bata rahat. On 09/08 chest xray showing signs of CHF. 09/08 @ 10:13 VS/Pulse OX: 109/73 142 18 92 % RA 09/05 Echocardiogram Results: ED 45-50 % 09/08 Chest X Ray: Showing signs of CHF Treatment: Telemetry monitoring 09/08 Lasix 40 mg IV TID change to 40 mb po daily 09/10 Metoprolol 50 mg po ac -brkfst, 25 mg po hs Lisinopril 2.5 mg po daily Amiodarone 200 mg po bid Strick intake and output daily weights In your professional opinion, can you please clarify the acuity and type of CHF if known? Acute Systolic Heart Failure: Acute on Chronic Systolic Heart Failure Unable to Determine Other, please specify (Last Revision: May 2017) acute on chronic systolic MTDD
--- NOTE | 2019-09-11 11:53 | P.DS ---
Providers Date of admission: 09/05/19 22:42 Expected date of discharge: 09/11/19 Attending physician: Fabiana Gar MD Consults: 09/06/19 10:50 Consult Physician Routine Consulting Provider: Hernan Dumont Consult Reason/Comments: known to you, LLE cellulitis, PAD, AAA Do you want consulting provider notified?: Yes 09/06/19 11:26 Consult Physician Routine Consulting Provider: Ariana Beaulieu Consult Reason/Comments: bacteremia Do you want consulting provider notified?: Yes 09/08/19 16:27 Consult Physician Urgent Consulting Provider: [facility] Consult Reason/Comments: elevated heart rate, a flutter on EKG Do you want consulting provider notified?: Yes [facility]: 64-year-old male with PMH of CAD, hypertension, dyslipidemia, AAA presents to the ED for worsening redness in his left leg. He noticed erythema around the graft harvesting site of his left leg associated with swelling and pain rated 7 out of 10 in severity. When his erythema did not improve this prompted patient to come to the ED. Patient initially met sepsis criteria with fever, leukocytosis and a positive source of infection. He was started on vancomycin and admitted for further management. Venous Doppler ruled out DVT. Infectious disease was consulted. Blood cultures were taken which were positive for group G strep. Infectious disease recommended switching antibiotics to cefazolin and clindamycin. CTA was performed which showed mild aneurysm in the abdominal aorta measures 3.3 cm and 50-85 % stenosis of the femoral artery. Vascular surgery was consulted and recommended outpatient follow-up. Patient was noted to have moderate blood on urinalysis with 12 RBCs. There was some concerns for post streptococcal glomerulonephritis. He was given an appointment with urology for outpatient follow-up of hematuria. Echocardiogram was done which showed EF 45-50% with hypokinetic wall motion which is improved from his previous echocardiogram. He was continued on aspirin, Lipitor and beta rahat. On September 07 patient went into atrial flutter with heart rate in the 140s. He was given beta rahat and diltiazem without any relief. Cardiology recommended amiodarone drip. He developed an ALLERGIC reaction with stridor for which he was given Benadryl, epinephrine and Solu-Medrol. Cardiology recommended restart ing amiodarone at a lower dose which patient was able to tolerate. His atrial flutter did not resolve and he was taken for cardioversion which terminated his atrial flutter to sinus rhythm. Cardiology recommended Eliquis and amiodarone by mouth. Infectious disease recommended Keflex on discharge. Patient was also noted to be hypoxic during his episode of atrial flutter for which he was given Lasix IV which was transitioned to Lasix by mouth at the time of discharge. Patient was seen and examined. No acute events overnight. Patient reports significant improvement in his swelling and erythema of his left lower extremity. He denies any chest pain, shortness of breath or palpitations. No nausea or vomiting. No fever or chills. Looking forward to going home. General: [non toxic], [no distress], [appears at stated age] Derm: [warm], [dry] Head: [atraumatic], [normocephalic], [symmetric] Eyes: [EOMI], [no lid lag], [anicteric sclera] Mouth: [no lip lesion], [mucus membranes moist] Cardiovascular: [S1S2 reg], [no murmur], [positive DP pulse bilateral], Lungs: [Clear to auscultation bilaterally], [no rhonchi, no rales] , [no accessory muscle use], no stridor Abdominal: [soft], [ nontender to palpation], [no guarding], [no appreciable organomegaly] Ext: [no gross muscle atrophy], [no edema], [no contractures], [significant improvement in erythema left lower extremities medial calf dressing applied clean dry and intact] Neuro: [no focal neuro deficits] Psych: [Alert], [oriented], [appropriate affect] Acute hypoxic respiratory failure likely from combination of systolic CHF and atrial flutter, resolving Atrial flutter Sepsis related to cellulitis with bacteremia 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 Continue Lasix 40 mg daily by mouth. Continue metoprolol and lisinopril. Strict intake and output. Daily weights. Cardiology on board. EKG showing atrial flutter, now converted to sinus after cardioversion. Telemetry monitoring. Per cardiology recommendations, start Eliquis for anticoagulation. Continue metoprolol and amiodarone by mouth. Keep potassium greater than 4 and magnesium greater than 2. Patient initially met sepsis criteria with fever, leukocytosis and positive source of infection. His cellulitis improving since admission. Blood cultures are positive for beta-hemolytic strep group G. Infectious diseases consulted. Patient is currently on cefazolin IV and clindamycin has been added. Repeat blood cultures are ordered and prelim negative. Tylenol as needed for fever. Case discussed with Dr. Beaulieu, plans to go home on oral Keflex on discharge. Vascular surgery as evaluated the patient and recommends no further inpatient workup. Patient noted to have moderate blood with 12 RBCs on urinalysis. 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 Echocardiogram shows EF 45-50% with hypokinetic wall motion improved from previous echocardiogram. Continue aspirin, Lipitor and beta rahat. Continue above medication for blood pressure control. Monitor vitals and adjust medications if necessary. [Patient admitted for cellulitis of the left lower extremity. He is on IV antibiotics. Blood cultures positive, repeat negative. Cardioverted for atrial flutter not responding to beta rahat or amiodarone IV, currently sinus maintained on metoprolol and amiodarone by mouth. Anticipated DC home today. This complex discharge took about 45 minutes to complete.] Pertinent Studies: CT angiogram Venous duplex Chest x-ray Procedures: Cardioversion Patient Condition at Discharge: Stable Plan - Discharge Summary Discharge Rx Participant: Yes New Discharge Prescriptions: New Cephalexin [Keflex] 500 mg PO Q6HR 10 Days #40 cap Furosemide [Lasix] 40 mg PO DAILY #30 tab Amiodarone [Cordarone] 200 mg PO BID #60 tab Apixaban [Eliquis] 5 mg PO BID #60 tab Continue Aspirin 81 mg PO DAILY Metoprolol Tartrate [Lopressor] 50 mg PO AC-BRKFST Lisinopril 2.5 mg PO DAILY Cholecalciferol [Vitamin D3 (25 Mcg = 1000 Iu)] 5,000 unit PO DAILY Atorvastatin [Lipitor] 40 mg PO HS Metoprolol Tartrate 25 mg PO HS Fluocinolone Acetonide Oil [Fluocinolone Acetonide Oil (Otic)] 5 drops BOTH EARS BID PRN PRN Reason: Itching Discontinued Azithromycin [Zithromax Z-pack] See Taper PO DIRECTED Discharge Medication List Aspirin 81 mg PO DAILY 03/26/14 [History] Lisinopril 2.5 mg PO DAILY 03/26/14 [History] Metoprolol Tartrate [Lopressor] 50 mg PO AC-BRKFST 03/26/14 [History] Cholecalciferol [Vitamin D3 (25 Mcg = 1000 Iu)] 5,000 unit PO DAILY 02/11/17 [History] Atorvastatin [Lipitor] 40 mg PO HS 04/05/17 [History] Metoprolol Tartrate 25 mg PO HS 04/05/17 [History] Fluocinolone Acetonide Oil [Fluocinolone Acetonide Oil (Otic)] 5 drops BOTH EARS BID PRN 09/05/19 [History] Amiodarone [Cordarone] 200 mg PO BID #60 tab 09/11/19 [Rx] Apixaban [Eliquis] 5 mg PO BID #60 tab 09/11/19 [Rx] Cephalexin [Keflex] 500 mg PO Q6HR 10 Days #40 cap 09/11/19 [Rx] Furosemide [Lasix] 40 mg PO DAILY #30 tab 09/11/19 [Rx] Follow up Appointment(s)/Referral(s): Leonela Carreon MD [STAFF PHYSICIAN] - 1 Week Adarsh Carroll MD [Primary Care Provider] - 1-2 days Hernan Dumont MD [STAFF PHYSICIAN] - 1 Week Curt Bermudez MD [STAFF PHYSICIAN] - 1 Week Activity/Diet/Wound Care/Special Instructions: Diet: Cardiac low salt Follow-up PCP within 3 days of discharge. Follow-up cardiology clinic at discharge. Follow-up with vascular surgery within 1 week of discharge. Take all medications as advised. Come back to the ED or call 911 for worsening erythema, fevers greater than 100.4 Fahrenheit, uncontrolled chills, chest pain, shortness of breath, palpitations or dizziness. Follow-up with urology within 1 week of discharge (evaluation for hematuria). Discharge Disposition: HOME SELF-CARE
--- NOTE | 2019-09-11 13:19 | P.PN ---
Subjective Progress Note Date: 09/11/19 This is a 64-year-old gentleman with known history of coronary artery disease and prior bypass surgery, history of mitral valve and tricuspid valve repair, hypertension, hyperlipidemia, admitted to the hospital with cellulitis, was placed on antibiotics. Patient then went into typical atrial flutter/fibri llation, underwent cardioversion, this morning remains in a normal sinus rhythm. Sitting up at bedside this morning at the time of my examination, overall doing well. Blood pressure 105/56 with a heart rate in the 50s, 96% on room air. White blood cell count 8.0, hemoglobin 11.7, platelet count 224. Sodium 136, potassium 3.7, BUN 30, creatinine 1.1. Objective - Vital Signs Vital signs: Vital Signs Temp 97.9 F 09/11/19 09:15 Pulse 56 L 09/11/19 09:15 Resp 18 09/11/19 09:20 BP 105/56 09/11/19 09:15 Pulse Ox 96 09/11/19 09:15 Intake & Output 09/10/19 09/11/19 09/11/19 18:59 06:59 18:59 Intake Total 876.063 60 220 Output Total 200 1500 Balance 676.063 -1440 220 Weight 90.2 kg Intake: IV 40 60 20 Invasive Line 2 20 30 10 Invasive Line 3 20 30 10 Intake, IV Titration 116.063 Amount Heparin Sod,Pork in 0.45% 116.063 NaCl 25,000 unit In 0.45 % NaCl 1 250ml.bag @ 11. 603 UNITS/KG/HR 10 mls/hr IV .Q24H [facility] Rx#: [id number] Oral 720 200 Output: Urine 200 1500 Other: Voiding Method Toilet Toilet Toilet # Voids 1 - Exam PHYSICAL EXAMINATION: GENERAL: 64-year-old gentleman in no acute distress at the time of my examination HEENT: Head is atraumatic, normocephalic. Pupils equal, round. Sclera anicteric. Conjunctiva are clear. Mucous membranes of the mouth are moist. Neck is supple. There is no elevated jugular venous pressure. No carotid bruit is heard. HEART EXAMINATION: Heart S1, S2 normal. No murmur or gallop heard. CHEST EXAMINATION: Lungs are clear to auscultation and precussion. No chest wall tenderness is noted on palpation or with deep breathing. ABDOMEN: Soft, nontender. Bowel sounds are heard. No organomegaly noted. EXTREMITIES:[ 2+ peripheral pulses with no evidence of peripheral edema dressing in place to the left lower extremity NEUROLOGIC patient is awake, alert and oriented 3 . - Labs CBC & Chem 7: 09/11/19 05:26 09/11/19 05:26 Labs: Abnormal Lab Results - Last 24 Hours (Table) 09/11/19 09/11/19 09/11/19 Range/Units 05:26 05:26 05:26 RBC 3.54 L (4.30-5.90) m/uL Hgb 11.7 L (13.0-17.5) gm/dL Hct 34.7 L (39.0-53.0) % Sodium 136 L (137-145) mmol/L BUN 30 H (9-20) mg/dL Calcium 7.7 L (8.4-10.2) mg/dL C-Reactive Protein 54.0 H (<10.0) mg/L Microbiology - Last 24 Hours (Table) 09/07/19 07:04 Blood Culture - Preliminary Blood No Growth after 96 hours Assessment and Plan Plan: Assessment and plan #1 typical atrial flutter, status post cardioversion, currently in normal sinus rhythm #2 sepsis related to cellulitis with bacteremia #3 coronary artery disease with prior bypass surgery #4 hypertension #5 hyperlipidemia #6 history of mitral valve and tricuspid valve repair Plan From cardiology's perspective, patient may be discharged home today. We'll make him a follow-up appointment in the office post discharge. DNP note has been reviewed, I agree with a documented findings and plan of care. Patient was seen and examined.
--- NOTE | 2019-09-11 13:40 | PN ---
PROGRESS NOTE DATE OF SERVICE: 09/11/2019 REASON FOR FOLLOWUP: Left lower extremity cellulitis. INTERVAL HISTORY: The patient is currently afebrile. The patient is breathing comfortably. Denies having any chest pain or any cough. No nausea, vomiting, abdominal pain. Overall pain and discomfort and redness to the left leg is much improved. PHYSICAL EXAMINATION: Blood pressure 105/56, pulse of 56, temperature 97.9. He is 96% on room air. General description is an elderly male lying in bed in no distress. Respiratory system: Unlabored breathing. Lungs clear to auscultation anteriorly. Heart S1, S2. Regular rate and rhythm. Abdomen is soft, no tenderness. LABS: Hemoglobin 11.7, white count 8.0, BUN of 30, creatinine 1.13. DIAGNOSTIC IMPRESSION AND PLAN: Patient with acute left lower extremity cellulitis with group B strep bacteremia. Clinically is responding to cefazolin. Finish therapy with oral Keflex 500 mg 4 times a day for 10 days and close outpatient followup. MMODL / IJN: [id number] /
[2019-09-11 15:22] VITALS: BP 113/68; PULSE 58; TEMP 98.6
== END 2019-09-11 16:56 | disposition home or self-care (01) | DRG 871 ==
LOC: EC 19:52 → 4SSUR 22:42 → 3SCARD 09-08 20:55
PROVIDERS: ADMIT Internal Medicine; ATTEND Internal Medicine
PROC: 5A2204Z Restoration of Cardiac Rhythm, Single (ICD-10-PCS; principal; 2019-09-10 11:00)
DX: A40.1 Sepsis due to streptococcus, group B (principal); J96.01 Acute respiratory failure with hypoxia; I50.23 Acute on chronic systolic (congestive) heart failure; L03.116 Cellulitis of left lower limb; I13.0 Hypertensive heart and chronic kidney disease with heart failure and stage 1 through stage 4 chronic kidney disease, or unspecified chronic kidney disease; N17.9 Acute kidney failure, unspecified; I48.3 Typical atrial flutter; E78.5 Hyperlipidemia, unspecified; I25.10 Atherosclerotic heart disease of native coronary artery without angina pectoris; I71.4 Abdominal aortic aneurysm, without rupture; G47.00 Insomnia, unspecified; I70.202 Unspecified atherosclerosis of native arteries of extremities, left leg; N18.3 Chronic kidney disease, stage 3 (moderate); I25.5 Ischemic cardiomyopathy; R31.9 Hematuria, unspecified; Z11.59 Encounter for screening for other viral diseases; Z79.82 Long term (current) use of aspirin; Z79.899 Other long term (current) drug therapy; Z95.1 Presence of aortocoronary bypass graft; Z90.89 Acquired absence of other organs; Z98.890 Other specified postprocedural states; Z87.891 Personal history of nicotine dependence; Z86.79 Personal history of other diseases of the circulatory system; Z83.3 Family history of diabetes mellitus; Z82.49 Family history of ischemic heart disease and other diseases of the circulatory system
CPT/HCPCS: 36415; 71045; 75635; 80048; 80053; 81001; 83605; 83735; 85025; 85610; 85730; 86140; 87040; 87077; 87186; 92960; 93005; 93306; 94640; 96365; 96375; 99285